=== PATIENT | male | born 1990 | race Caucasian/White ===

== ENCOUNTER 2023-01-27 09:09 | Outpatient (AMB) | payer OTHER, SELFPAY ==
[2023-01-27 09:13] VITALS: BP 134/82; PULSE 63; RESP 12; TEMP 36.5; O2SAT 98; BMI 29.0
--- NOTE | 2023-01-27 09:13 | A.OFFPC_ITS ---
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 Patient states that lately he has been randomly falling asleep and has been experiencing chronic body pain. He states that his fatigue has been in a way disabling and has been worsening. Patient states that in 2016 he went in for a sleep study ajnd nothing came out of it besides that he had allergies that were effecting sleep. Patient states that in his sleep now he has been sleep walking and has been punching and kicking while sleep walking as if acting something out. Patient would like a referral to get sleep study done. Patient would also like to explore a business intelligence director due to him doing so before he transferred care. Twist Tester Required: No Accompanied by: Mother Allergies Seasonal Allergies Allergy (Severe, Verified 01/27/23 09:54) Breathing complication Outdoor Pollen Allergy (Severe, Uncoded 01/27/23 09:54) Breathing Complications Medication List - Last Reconciled 01/27/23 by Ai Molina CNP aripiprazole (Abilify) 2 mg PO BEDTIME multivitamin 1 tab PO DAILY prazosin 2 mg PO BEDTIME sertraline (Zoloft) 100 mg PO DAILY Tobacco use date assessed: 01/27/23 Dental Screening Dental Screen Date: 01/27/23 Did you have a dental visit in the last 12 months?: No Did you have a dental problem in the last 6 months where you did not have access to dental care?: No Was dental information given to patient?: Patient has dentist HPI HPI Comments History of Present Illness Details 32-year-old male presents to [facility]. He notes that he was last evaluated by his former PCP 8 months ago and had blood work done a year ago. He reports PMH significant for anxiety, depression, bipolar 2, PTSD, diplopia, and GERD. He is on Abilify, prazosin, and sertraline. He notes he takes his medications as prescribed. He is followed by a psychiatry instructor every 2 weeks or monthly for medication management. He sees a therapist weekly or every 2 weeks. He reports fatigue and generalized body aches for the past 10 years. No tingling, numbness, loss of sensation. Ibuprofen has been effective in managing his symptoms. He also reports h/o falling asleep abruptly. He reports violent behaviors such as kicking and sleeping during his sleep. He notes he had normal sleep study in 2016. He notes his former PCP was due to refer him to a business intelligence director but he relocated to [facility] before he was referred. He requests referrals to sleep study and rheumatology. [facility] Medical History (Updated 01/27/23 @ 10:25 by Ai Molina CNP) Acid reflux Anxiety Bipolar disorder Depression Generalized headaches Sinusitis Surgical History (Updated 01/27/23 @ 09:29 by Blossom Romano MA) No pertinent past surgical history Family History (Updated 01/27/23 @ 09:31 by Blossom Romano MA) Mother High cholesterol Psychiatric disorder Social History Housing: House Patient Tobacco Use Status: Never used Tobacco e-Cigarette/Vaping Use: Never Used service: No Current occupational status: unemployed and disabled Cognitive needs: Yes Hearing needs: No Vision needs: Yes Questionnaire PHQ-9 Over the last 2 weeks, how often have you been bothered by any of the following problems? 1. Little interest or pleasure in doing things: more than half the days 2. Feeling down, depressed, or hopeless: nearly every day 3. Trouble falling or staying asleep, or sleeping too much: not at all 4. Feeling tired or having little energy: nearly every day 5. Poor appetite or overeating: not at all 6. Feeling bad about yourself - or that you are a failure or have let yourself or your family down: not at all 7. Trouble concentrating on things, such as reading the newspaper or watching television: nearly every day 8. Moving or speaking so slowly that other people could have noticed. Or the opposite - being so fidgety or restless that you have been moving around a lot more than usual: nearly every day 9. Thoughts that you would be better off or of hurting yourself in some way: not at all Total score: 14 Depression Screening Interpretation: Positive Source: Developed by Drs. Terry Freed, Randa Zimmer, Rom Ambriz and colleagues, with an educational riana from [employer]. Thrive Questionnaire Date Thrive assessed: 01/27/23 What is your living situation today?: I have a steady place to live Within the past 12 months, did the food you bought not last and you didn't have the money to get more?: Never true Within the past 12 months, did you worry whether your food would run out before you got money to buy more?: Never true Do you have trouble paying for medicines?: No Do you have trouble getting transportation to medical appointments?: No Do you have trouble paying your heating and electricity bill?: No Do you have trouble taking care of your child, family member or friend?: No Do you have trouble with day-to-day activities such as bathing, preparing meals, shopping, managing finances, etc.?: No Are you currently unemployed and looking for a job?: No Are you interested in more education?: No Please select the resources that you would like help with: None Currently or been in a relationship where the following occur: no concerns reported AUDIT C Alcohol Use Questionnaire (AUDIT-C) 1. How often do you have a drink containing alcohol?: Never 3. How often do you have six or more drinks on one occasion?: Never Total Score: 0 ROCKY-7 AMB Questionnaire ROCKY-7 Date ROCKY - 7 assessed: 01/27/23 Feeling nervous, anxious, or on edge: 3 = Nearly every day Not being able to stop or control worryin = More than half the days Worrying too much about different things: 3 = Nearly every day Trouble relaxin = More than half the days Being so restless that it is hard to sit still: 3 = Nearly every day Becoming easily annoyed or irritable: 3 = Nearly every day Feeling afraid as if something awful might happen: 2 = More than half the days Total ROCKY-7 score (0-4 normal; 5-9 mild; 10-14 moderate; 15-21 severe): 18 Source: Developed by Drs. Terry Freed, Randa Zimmer, Rom Ambriz and colleagues, with an educational riana from [employer]. Review of Systems Const Details: Const Denies chills, Denies fatigue, Denies fever(s), Denies headache(s) and Denies weakness ENT Denies dizziness and Denies headache(s) Card Denies chest pain, Denies lightheadedness, Denies dyspnea and Denies other (Palpitations) Resp Denies cough, Denies dyspnea, Denies wheezing and Denies other ( shortness of breath) GI Denies abdominal pain, Denies melena, Denies hematochezia, Denies change in bowel habits, Denies dyspepsia and Denies nausea Denies hematuria and Denies dysuria Musc Reports as per HPI Skin/Breast Denies rash, Denies unusual bruising and Denies wounds Neuro Denies abnormal gait, Denies dizziness, Denies headache(s), Denies memory loss, Denies numbness, Denies Sensory deficit (Neuro), Denies tingling and Denies weakness Psych Denies anxiety, Denies depression, Denies memory loss Endo Denies cold intolerance, Denies fatigue, Denies heat intolerance, Denies polydipsia and Denies polyuria Aller/Immun Denies wheezing Physical exam (Primary Care) Vital Signs: Last Vital Signs Temp 97.7 F 01/27/23 09:13 Pulse 63 01/27/23 09:13 Resp 12 01/27/23 09:13 BP 134/82 01/27/23 09:13 Pulse Ox 98 01/27/23 09:13 Oxygen Delivery Method Room Air 01/27/23 09:13 BMI result Body Mass Index 29.0 Tobacco/Smoking Status: Tobacco use Status Tobacco use date assessed 01/27/23 01/27/23 09:32 Patient Tobacco Use Status Never used Tobacco 01/27/23 09:32 e-Cigarette/Vaping Use Never Used 01/27/23 09:32 PHQ-9: PHQ-9 Score PHQ-9: Total score 14 01/27/23 09:32 Depression Screening Interpretation: Positive Thrive Assessment: Date of Thrive Assessment Date Thrive assessed 01/27/23 01/27/23 09:32 Currently or been in a relationship where the following occur: no concerns reported Const Other: General: no acute distress and well developed Nutritional Appearance: well nourished Orientation/consciousness: patient oriented x3 HENMT Head: Yes normocephalic and Yes atraumatic Eyes General: appearance normal, both eyes and all related structures Pupils: Equal, round and reactive pupils present EOM: EOMs intact bilaterally Resp Effort & Inspection: normal respiratory effort Auscultation: clear to auscultation bilaterally Cardio Rate: regular rate Rhythm: regular rhythm Heart sounds: S1 normal heart sound present, S2 normal heart sound present, no gallops, no murmurs and no rubs GI Palpation (GI): No Abdominal aortic bruit present, Soft to palpation, nontender, No hepatosplenomegaly present and No Rebound tenderness present Auscultation: normal bowel sounds General: Yes no CVA tenderness Back/Spine/Pelvis Back: no CVA tenderness Cervical Spine: cervical ROM normal and Cervical spine tenderness Thoracic/Lumbar Spine: thoraco-lumbar ROM normal, No pain with thoraco-lumbar ROM, thoracic spinal tenderness and lumbar spinal tenderness Extrem General: Yes normal to inspection, No edema and No calf tenderness Skin General: warm and dry. Normal skin color. Normal skin turgor Lesions: no lesions Rashes: no rashes Trauma: no lacerations or abrasions Wounds: no wounds Nails: normal Neuro General: patient oriented x3, gait normal and no focal neuro deficit Cranial nerves: Yes Equal, round and reactive pupils present Cognition (Neuro): normal cognition Gait exam (Neuro): Normal gait present Sensory Exam: No Sensory deficit (Neuro) Psych Appearance: grossly normal Affect: normal affect Attitude: cooperative Thought process: Normal thought process present Assessment and Plan Assessment & Plan (1) Generalized body aches: Code(s): R52 - Pain, unspecified Plan: Reports chronic generalized body aches No exam evidence of bacterial or viral infection Tenderness to palpation of muscles to his entire body Tylenol ibuprofen as needed for pain or discomfort Warm/cold compresses encouraged Will check a sed rate Referred to rheumatology Return with worsening or new symptoms Verbalized understanding and agreed with treatment plan (2) Excessive sleepiness: Code(s): G47.10 - Hypersomnia, unspecified Plan: Reports chronic history of abrupt and disruptive sleep Referred to sleep medicine Follow-up with worsening or new symptoms Verbalized understanding and agreed with treatment plan. (3) Anxiety: Code(s): F41.9 - Anxiety disorder, unspecified Plan: PHQ-9 and ROCKY-7 scores revealed moderate depression and severe anxiety respectively Continue with current treatment regimen Routine exercise encouraged Follow-up with psychiatry and therapist as planned Return with worsening or new symptoms Verbalized understanding and agreed with treatment plan. (4) Depression: Code(s): F32.A - Depression, unspecified Plan: As above (5) Bipolar II disorder: Code(s): F31.81 - Bipolar II disorder Plan: As above (6) PTSD (post-traumatic stress disorder): Code(s): F43.10 - Post-traumatic stress disorder, unspecified Plan: As above (7) Laboratory tests ordered as part of a complete physical exam (CPE): Code(s): Z00.00 - Encounter for general adult medical examination without abnormal findings Plan: Fasting labs ordered as part of a complete physical exam. Advised to fast for at least 10 hours before getting labs drawn. May drink water Verbalized understanding and agreed with treatment plan. (8) Diplopia: Code(s): H53.2 - Diplopia Plan: No acute symptoms Referred to Ophthalmology Orders: Orders Comprehensive [place]. Panel Fast Today Z00.00 - Encounter for general adult medical examination without abnormal findings Lipid Panel Today Z00.00 - Encounter for general adult medical examination without abnormal findings TSH reflex Free T4 Today Z00.00 - Encounter for general adult medical examination without abnormal findings Complete Blood Count Auto Diff Today Z00.00 - Encounter for general adult medical examination without abnormal findings Erythrocyte Sedimentation Rate Today Z00.00 - Encounter for general adult medical examination without abnormal findings UA CC w/rflx Micro + Cult Today Z00.00 - Encounter for general adult medical examination without abnormal findings Referrals Ophthalmology Referral H53.2 - Diplopia Coding Level of Care Code New Pt Level 3 (60460) Diagnoses Generalized body aches R52 Excessive sleepiness G47.10 Anxiety F41.9 Depression F32.A Bipolar II disorder F31.81 PTSD (post-traumatic stress disorder) F43.10 Laboratory tests ordered as part of a complete physical exam (CPE) Z00.00 Diplopia H53.2
== END 2023-01-27 10:28 | disposition home or self-care (01) ==
PROVIDERS: PCP Internal Medicine; Visit Provider Nurse Practitioner Family
DX: R52 Pain, unspecified (principal); F41.9 Anxiety disorder, unspecified; F31.81 Bipolar II disorder; F43.10 Post-traumatic stress disorder, unspecified; H53.2 Diplopia; G47.10 Hypersomnia, unspecified
CPT/HCPCS: 99203

== ENCOUNTER 2023-01-27 10:14 | Outpatient (REF) | payer OTHER, SELFPAY ==
[2023-01-27 11:45] LABS: MANUAL DIFF FLAG NO
[2023-01-27 11:49] LABS: Basophils Percent Auto 0.5 % (0-2); Eosinophils Absolute Auto 0.1 X10*3/uL (0.0-0.4); Eosinophils Percent Auto 1.4 % (0-4); Hematocrit 49.3 % (42.0-52.0); Hemoglobin 16.7 g/dl (14.0-18.0); Imm Gran Abs Auto 0.04 X10*3/uL (0.00-0.03); Imm Gran Pct Auto 0.5 % (0.0-0.4); Lymphocytes Absolute Auto 3.3 X10*3/uL (1.2-4.9); Lymphocytes Percent Auto 44.3 % (20-40); Mean Corpuscular HGB Conc 33.9 g/dl (31.0-36.0); Mean Corpuscular Hemoglobin 29.1 pg (27.0-33.0); Monocytes Absolute Auto 0.6 X10*3/uL (0.1-1.2); Monocytes Percent Auto 8.5 % (2-11); Neutrophils Absolute Auto 3.3 x10*3/uL (2.0-8.3); Neutrophils Percent Auto 44.8 % (45-73); Platelet Count 236 X10*3/uL (160-400); Red Blood Count 5.73 X10*6/uL (4.60-5.80); Red Cell Distribution Width 11.8 % (11.0-16.0); White Blood Count 7.3 X10*3/uL (4.8-10.8)
[2023-01-27 12:24] LABS: Alanine Aminotransferase 32 U/L (0-40); Albumin Level 4.5 g/dL (3.5-5.0); Alkaline Phosphatase 80 U/L (39-117); Anion Gap 18 (12-20); Aspartate Amino Transferase 26 U/L (5-37); Bilirubin Total 0.4 mg/dL (0.0-1.0); Blood Urea Nitrogen 24 mg/dL (9-16); Calcium 10.4 mg/dL (8.4-10.2); Carbon Dioxide 23 mmol/L (22-29); Chloride 103 mmol/L (96-108); Cholesterol 215 mg/dL (<200); Estimated Glomerular Filt Rate > 60; Glucose Fasting 83 mg/dL (60-99); HDL Cholesterol 37 mg/dL (>40); LDL Cholesterol Calculated 153 mg/dL (<100); Potassium 3.8 mmol/L (3.3-5.1); Sodium 140 mmol/L (135-145); Total Protein 7.6 g/dL (6.5-8.0); Triglycerides 126 mg/dL (<150)
[2023-01-27 12:30] LABS: Erythrocyte Sedimentation Rate 5 MM/HR (0-15)
[2023-01-27 12:45] LABS: TSH reflex Free T4 1.74 uIU/mL (0.32-4.0)
[2023-01-27 14:19] LABS: Appearance Urine Turbid; Color Urine Yellow; Glucose Urine UA Negative (Negative); Leukocyte Esterase Urine Negative (Negative); Nitrite Urine Negative (Negative); PH 5.5 (5.0-9.0); Specific Gravity - Urine >= 1.030 (1.005-1.025); Urine Blood Negative (Negative); Urine Ketones Negative (Negative); Urine Protein Negative (Neg-Trace)
== END 2023-01-27 10:15 | disposition home or self-care (01) ==
LOC: HO.WFDLDS 10:14
PROVIDERS: Visit Provider Nurse Practitioner Family
DX: Z00.00 Encounter for general adult medical examination without abnormal findings (principal)
CPT/HCPCS: 36415; 80053; 80061; 81003; 84443; 85025; 85652

== ENCOUNTER 2023-04-14 14:49 | Outpatient (AMB) | payer OTHER, SELFPAY ==
--- NOTE | 2023-04-14 15:03 | A.OFFVIS_ITS ---
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 Pt reports non refreshing sleep with excessive daytime tiredness. He feels weak, fatigue and sleepy. He does not have difficulty falling asleep or styaing sleep. He sleeps 9-10 hrs but feels exhausted. He wakes up with jaw clenching and holding his breath. He is also referred to rheumatology for evaluation of body ache and fatigue. Had in lab sleep study done [id number], but he could not sleep enough and it was inconclusive. Pt reports vivid dream and REM behavior, having violent movement, but not happen every night, maybe twice a month. Pt has hx of bipolar and depression. Denies smoking or alcohol use. Sleep questionnaire: Have you ever been diagnosed with a sleep disorder? No. Have you ever had a sleep study in the past? Yes. PSG done but it was inconclusive. Have you ever been treated for a sleep disorder? No. Do you take medications for a sleep disorder? prazosin 2mg, abilify 7.5 mg qHS. Do you snore? No, but having difficulty breathing and uses nasal strip. having nasal congestion. Do you wake up gasping at night? No. Do you have episodes of apneas? Yes. If yes, are they witnessed? Yes. Do you have episodes of nocturnal chest pain or dyspnea? Yes. Do you have difficulty initiating sleep? No. Do you have difficulty maintaining sleep? No. Do you wake up tired? Yes. Do you have headaches upon awakening? Yes. Do you wake up with dry mouth or throat? Yes. Do you have GERD? Yes. Do you have nocturia? Yes, 1-2 times at night. Do you have nocturnal leg cramps? No. Do you have symptoms of restless legs? No. Do you act out your dreams? Yes, kicking. [facility] Medical History (Updated 04/14/23 @ 15:24 by Wesley Mcclendon CNP) Bipolar disorder Depression Anxiety Generalized headaches Acid reflux Sinusitis Surgical History No pertinent past surgical history Family History Mother High cholesterol Psychiatric disorder Social History Housing: House Patient Tobacco Use Status: Never used Tobacco e-Cigarette/Vaping Use: Never Used service: No Current occupational status: unemployed and disabled Cognitive needs: Yes Hearing needs: No Vision needs: Yes Review of Systems Const All systems reviewed & are unremarkable except as noted in HPI and below Physical Exam Vital Signs: Last Vital Signs Pulse 67 04/14/23 15:06 BP 130/89 04/14/23 15:06 Pulse Ox 97 04/14/23 15:06 Oxygen Delivery Method Room Air 04/14/23 15:06 BMI result Body Mass Index 29.2 Const General: cooperative Nutritional Appearance: overweight Orientation/consciousness: patient oriented x3 Neck Neck: Yes full ROM and Yes supple Resp Effort & Inspection: normal respiratory effort and able to speak in complete sentences Neuro General: patient oriented x3, gait normal and moves all extremities Cognition (Neuro): normal cognition Gait exam (Neuro): Normal gait present Motor exam (neuro): 5/5 motor strength present throughout, Pronator motor function not present and no tremor noted Psych Appearance: grossly normal Mental Status: mental status grossly normal Speech and movement: Normal speech and movement present Affect: normal affect Attitude: cooperative Assessment & Plan Assessment & Plan (1) Witnessed episode of apnea: Code(s): R06.81 - Apnea, not elsewhere classified (2) Excessive sleepiness: Code(s): G47.10 - Hypersomnia, unspecified Plan Pt is advised to undergo home sleep study to assess for sleep apnea. Will f/u with pt after study to discuss results and appropriate treatment options. Sleep hygiene education provided. Advised patient to try magnesium supplement and melatonin. Pt to call with any worsening concerns or questions. Orders: Orders RT home sleep study Today G47.10 - Hypersomnia, unspecified, R06.81 - Apnea, not elsewhere classified Coding Level of Care Code New Pt Level 3 (34414) Diagnoses Witnessed episode of apnea R06.81 Excessive sleepiness G47.10
[2023-04-14 15:06] VITALS: BP 130/89; PULSE 67; O2SAT 97; BMI 29.2
== END 2023-04-14 15:29 | disposition home or self-care (01) ==
PROVIDERS: PCP Nurse Practitioner Family; Visit Provider Nurse Practitioner Family
DX: R06.81 Apnea, not elsewhere classified (principal); G47.10 Hypersomnia, unspecified
CPT/HCPCS: 99203

== ENCOUNTER → 2023-04-14 14:49 | Outpatient (BNVA) | payer OTHER, SELFPAY | PROVIDERS: PCP Nurse Practitioner Family; Visit Provider Nurse Practitioner Family | DX: G47.10 Hypersomnia, unspecified (principal); R06.81 Apnea, not elsewhere classified | CPT/HCPCS: 99202 ==

== ENCOUNTER 2023-05-05 15:11 | Outpatient (AMB) | payer OTHER, SELFPAY ==
--- NOTE | 2023-05-05 15:12 | A.OFFVIS_ITS ---
Intake Vital Signs 05/05/23 15:13 Height 5 ft 1 in Weight 169 lb 1.513 oz BMI 31.9 BP 126/82 Blood Pressure Location Rt brachial Position Sitting Respiration 15 Pulse 78 Pulse Source Pulse Oximeter Temp 97.5 F Temp Source Tympanic Pulse Oximetry (%) 99 Oxygen Delivery Method Room Air Intake Visit Reasons: Joint Pain Allergies Seasonal Allergies Allergy (Severe, Verified 05/05/23 15:15) Breathing complication Outdoor Pollen Allergy (Severe, Uncoded 05/05/23 15:15) Breathing Complications Medication List - Last Reconciled 05/05/23 by Krissy Perera RN aripiprazole (Abilify) 7.5 mg PO BEDTIME multivitamin 1 tab PO DAILY prazosin 2 mg PO BEDTIME sertraline (Zoloft) 100 mg PO DAILY HPI HPI Comments History of Present Illness Details Oren, a 33-year-old male presents for initial evaluation of chronic fatigue, general joint pain and pelvic floor weakness. He reports fatigue and generalized body aches for the past 10 years. No tingling, numbness, loss of sensation. He also explained that the joint pain is focused between his shoulder blades, neck and back, and at times his knees and hips would just to hurt. He reports 1 to 3 hours of morning stiffness. Ibuprofen has been effective in managing his symptoms. He also reports h/o falling asleep abruptly. He reports violent behaviors such as kicking and sleeping during his sleep. He notes he had normal sleep study in 2016. Patient shares that has been disabled for unemployment now 4 years because it worsened and he is not able to function cognitively because of the fatigue. He has had several workups by his PCP, neurology, sleep study and urology without remarkable findings. He explains that he is at his wits end cannot understand why he is so tired. He feels weak, fatigue and sleepy. He does not have difficulty falling asleep or styaing sleep. He sleeps 9-10 hrs but feels exhausted. He reports PMH significant for anxiety, depression, bipolar 2, PTSD, diplopia, and GERD. He is on Abilify, prazosin, and sertraline. He notes he takes his medications as prescribed. He is followed by a psychological anthropologist every 2 weeks or monthly for medication management. He sees a therapist weekly or every 2 weeks. Oren has a hx of bipolar and depression, denies smoking or alcohol use. He refers reports that he has changed his diet completely and tries to eat very clean and healthy in the hopes that this would have helped but it has not helped him over the years. He does like to go to the gym and workout and sometimes he feels his muscles With regards to an inflammatory or connective tissue disease process, the p atient denies Raynaud's phenomenon. 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 He denies dry, itchy eyes, red burning eyes needing steroids to treat; dry mouth, mouth sores or ulcers; nose bleed; ringing in the ear and thinning hair or hair loss. He denies butterfly rash on face or other rashes. He does not experience photosensitivity - getting sick or developing a rash from being out in the sun; denies blood or froth in urine. He reports urine dribble. Patient denies HAZEL or SOB(not related to anxiety) and chest pain. He has not had Carditis or Pleuritis. Patient denies any history of DVT/PE. never have had to take aspirin or a blood thinner. He denies fevers, unexplained weight-loss or weight- gain. Denies abdominal pain, blood or mucous in stool; nausea, vomiting and diarrhea and difficulty swallowing. He has been diagnosed with GERD but with his diet changes, it has been controlled. He denies family history of known connective tissue diseases or autoimmune processes. Grandfather with history of bladder prostate and colon cancer [facility] Medical History (Updated 05/05/23 @ 16:12 by Adrienne Strange [facility]) Shoulder blade pain Generalized muscle weakness Chronic fatigue Bipolar disorder Depression Anxiety Generalized headaches Acid reflux Sinusitis Surgical History No pertinent past surgical history Family History (Updated 05/05/23 @ 15:17 by Krissy Perera RN) Mother High cholesterol Psychiatric disorder Fibromyalgia Osteoarthritis Social History Housing: House Patient Tobacco Use Status: Never used Tobacco e-Cigarette/Vaping Use: Never Used service: No Current occupational status: unemployed and disabled Cognitive needs: Yes Hearing needs: No Vision needs: Yes Review of Systems Const All systems reviewed & are unremarkable except as noted in HPI and below Physical Exam Vital Signs: Last Vital Signs Temp 97.5 F 05/05/23 15:13 Pulse 78 05/05/23 15:13 Resp 15 05/05/23 15:13 BP 126/82 05/05/23 15:13 Pulse Ox 99 05/05/23 15:13 Oxygen Delivery Method Room Air 05/05/23 15:13 BMI result Body Mass Index 31.9 APPEARANCE: Patient in no acute distress, groomed and appears nourished EYES no redness, pupils equal and reactive to light, eyelids normal EARS:? External ear normal, canal clear and tympanic membrane normal. NOSE/SINUS:? Airflow through both nares, no nasal discharge, no bleeding THROAT:? Oral mucosa moist, no ulcerations NECK:? No thyromegaly or masses, no adenopathy, trachea midline. HEART:? Regular rhythm, S1-S2 heard, no murmurs, rubs or gallops. LUNG:? Clear to percussion and auscultation ABD:? Normal bowel sounds, no organomegaly, masses or tenderness. EXTREMITIES:? No edema, no calf tenderness, normal peripheral pulses. NEURO:? Oriented and alert x3.? No focal weakness.? Reflexes symmetric.? Gait normal. SKIN:? There are no skin lesions evident. No objective signs of Raynaud's phenomenon. JOINT EXAM: Cervical Spine:.? Full range of motion without pain; no tenderness. reports stiffness with ROM Thoracic Spine:.? No scoliosis.? Tenderness on palpation in areas of scapula spine Lumbar Spine:.? Alignment normal.? Full range of motion without pain, no tenderness. Chest Wall:.? No tenderness, swelling, increased warmth or erythema. Hands:.? Normal pain-free range of motion without tenderness, swelling, increased warmth or erythema. 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 Wrists:.? Normal pain-free range of motion without tenderness, swelling, increased warmth or erythema. Elbows:. Normal pain-free range of motion without tenderness, swelling, increa sed warmth or erythema. Shoulders:.?? Full range of motion without pain. No tenderness, weakness, swelling, increased warmth or erythema. reports stiffness with ROM Hips:.? Full range of motion without pain. Hip bursa:.? No tenderness. Knees:.?? Normal pain-free range of motion without tenderness, swelling, increased warmth or erythema.? There is no effusion or crepitation Ankles:.? Normal pain-free range of motion without tenderness, swelling, increased warmth or erythema. Feet:.? Normal pain-free range of motion without tenderness, swelling, increased warmth or erythema. Results Reviewed Results Reviewed: 01/27/2023 labs CBC grossly normal CMP grossly normal-calcium 10.4 h Assessment & Plan Assessment & Plan (1) Chronic fatigue: Code(s): R53.82 - Chronic fatigue, unspecified (2) Generalized body aches: Code(s): R52 - Pain, unspecified (3) Pelvic floor weakness, male: Code(s): M62.89 - Other specified disorders of muscle (4) Shoulder blade pain: Code(s): M89.8X1 - Other specified disorders of bone, shoulder Plan Chronic Fatigue/Joint pain: Oren, 33-year-old male here for evaluation of chronic fatigue, back and hip pain, neck pain, shoulder pain and pelvic floor weakness. Life is currently unsettling for this is a young man who states that he has been disabled for 4 years now. He had pursued his undergraduate degree in criminal justice and was ready to work when his experience started. He finds the chronic fatigue very debilitating and body aches and pain discouraging. He cannot relate an associated event at onset. However, after an initial careful review of patient's records, physical examination, and analysis of existing diagnostics, I do not think his experienced is being caused by an underlying connective tissue disease or an inflammatory process. I explained to the patient that chronic fatigue, as a symptom of illness, can multiple causes. I think his psych history could be the main cause for fatigue, which is also a side effect of his medications. The tenderness/pain between his shoulder blades is likely a stress point. He denies injury or trauma to his joints. He denies having joint Xrays done. I will evaluate further with EMG studies, Labs and Xrays. Orders: Orders C Reactive Protein 05/05/23 R52 - Pain, unspecified, R53.82 - Chronic fatigue, unspecified Erythrocyte Sedimentation Rate 05/05/23 R52 - Pain, unspecified, R53.82 - Chronic fatigue, unspecified ARCHIE Reflex Titer and Pattern 05/05/23 R52 - Pain, unspecified, R53.82 - Chronic fatigue, unspecified Uric Acid 05/05/23 R52 - Pain, unspecified, R53.82 - Chronic fatigue, unspecified Sjogren's Antibodies 05/05/23 R52 - Pain, unspecified, R53.82 - Chronic fatigue, unspecified IRON PROFILE 05/05/23 R52 - Pain, unspecified, R53.82 - Chronic fatigue, unspecified Vitamin B12 05/05/23 R52 - Pain, unspecified, R53.82 - Chronic fatigue, unspecified Complete Blood Count Auto Diff 05/05/23 R52 - Pain, unspecified, R53.82 - Chronic fatigue, unspecified NE electromyogram (EMG) 05/05/23 M62.81 - Muscle weakness (generalized), M62.89 - Other specified disorders of muscle, R53.82 - Chronic fatigue, unspecified HLA B27 05/05/23 R07.81 - Pleurodynia, R52 - Pain, unspecified XR hip BI w PEL1V 05/05/23 M62.81 - Muscle weakness (generalized), M89.8X1 - Other specified disorders of bone, shoulder XR thoracic spine 3V 05/05/23 M62.81 - Muscle weakness (generalized), M89.8X1 - Other specified disorders of bone, shoulder, R07.81 - Pleurodynia Aldolase 05/05/23 R52 - Pain, unspecified, R53.82 - Chronic fatigue, unspecified Creatine Kinase Total 05/05/23 R52 - Pain, unspecified, R53.82 - Chronic fatigue, unspecified Immunoglobulins,IgG IgA IgM 05/05/23 R52 - Pain, unspecified, R53.82 - Chronic fatigue, unspecified Vitamin D 1,25 dihydroxy 05/05/23 R52 - Pain, unspecified, R53.82 - Chronic fatigue, unspecified Free T4 (Free Thyroxine) 05/05/23 R52 - Pain, unspecified, R53.82 - Chronic fatigue, unspecified Comprehensive Met. Panel 05/05/23 R52 - Pain, unspecified, R53.82 - Chronic fatigue, unspecified XR shoulder RT min 2V 05/05/23 M62.81 - Muscle weakness (generalized), M89.8X1 - Other specified disorders of bone, shoulder XR shoulder LT min 2V 05/05/23 M62.81 - Muscle weakness (generalized), M89.8X1 - Other specified disorders of bone, shoulder Coding Level of Care Code Tele New Pt Level 4 (59290) Diagnoses Chronic fatigue R53.82 Generalized body aches R52 Pelvic floor weakness, male M62.89 Shoulder blade pain M89.8X1
[2023-05-05 15:13] VITALS: BP 126/82; PULSE 78; RESP 15; TEMP 36.4; O2SAT 99; BMI 31.9
== END 2023-05-05 16:18 | disposition home or self-care (01) ==
PROVIDERS: PCP Nurse Practitioner Family; Visit Provider Nurse Practitioner Family
DX: R53.82 Chronic fatigue, unspecified (principal); R52 Pain, unspecified; M62.89 Other specified disorders of muscle; M89.8X1 Other specified disorders of bone, shoulder
CPT/HCPCS: 99204

== ENCOUNTER 2023-05-05 15:11 | Outpatient (REF) | payer OTHER, SELFPAY ==
--- NOTE | ~2023-05-05 | XR_ITS ---
EXAMINATION: XR THORACIC SPINE XR SHOULDER, RIGHT XR SHOULDER, LEFT XR PELVIS AND BILATERAL HIPS CLINICAL INFORMATION: Muscle weakness generalized. Please visualize shoulder blades. COMPARISON: None TECHNIQUE: 4 views of each shoulder. AP view of the pelvis. AP and frog-lateral views of each hip. 3 views of the thoracic spine. FINDINGS: AP PELVIS AND BILATERAL HIPS: Mild degenerative changes in the bilateral hips. Bilateral hip alignment is preserved. A rounded density projects over the sacrum on some views and over soft tissues on others suggesting it is a soft tissue focus of uncertain etiology and significance. Bilateral sacroiliac joints are symmetric. THORACIC SPINE: Degenerative changes on very limited views of the lower cervical spine should be evaluated with dedicated cervical spine images. Mild degenerative changes in the lower thoracic spine. No gross thoracic vertebral body compression fractures are appreciated, although evaluation limited due to overlying bone and soft tissues. RIGHT SHOULDER: Mild degenerative changes in the acromioclavicular joint with joint space narrowing and hypertrophic change. Glenohumeral alignment is preserved. LEFT SHOULDER: Mild degenerative changes in the acromioclavicular joint with joint space narrowing and hypertrophic change. Glenohumeral alignment is preserved. Small dense focus projects over the scapula, possibly representing a bony lesion such as a bone island versus soft tissue calcification and is incompletely imaged. XR/XR shoulder RT min 2V IMPRESSION: 1. Mild degenerative changes in the bilateral hips. 2. A rounded density in the soft tissues adjacent to the sacrum of undetermined age, significance and etiology. 3. Mild degenerative changes in the lower thoracic spine. 4. Mild degenerative changes in the bilateral acromioclavicular joints. Correlation with clinical exam recommended to determine further management. If there is concern for fracture or other underlying pathology, MRI could be obtained for further evaluation.
--- NOTE | ~2023-05-05 | XR_ITS ---
EXAMINATION: XR THORACIC SPINE XR SHOULDER, RIGHT XR SHOULDER, LEFT XR PELVIS AND BILATERAL HIPS CLINICAL INFORMATION: Muscle weakness generalized. Please visualize shoulder blades. COMPARISON: None TECHNIQUE: 4 views of each shoulder. AP view of the pelvis. AP and frog-lateral views of each hip. 3 views of the thoracic spine. FINDINGS: AP PELVIS AND BILATERAL HIPS: Mild degenerative changes in the bilateral hips. Bilateral hip alignment is preserved. A rounded density projects over the sacrum on some views and over soft tissues on others suggesting it is a soft tissue focus of uncertain etiology and significance. Bilateral sacroiliac joints are symmetric. THORACIC SPINE: Degenerative changes on very limited views of the lower cervical spine should be evaluated with dedicated cervical spine images. Mild degenerative changes in the lower thoracic spine. No gross thoracic vertebral body compression fractures are appreciated, although evaluation limited due to overlying bone and soft tissues. RIGHT SHOULDER: Mild degenerative changes in the acromioclavicular joint with joint space narrowing and hypertrophic change. Glenohumeral alignment is preserved. LEFT SHOULDER: Mild degenerative changes in the acromioclavicular joint with joint space narrowing and hypertrophic change. Glenohumeral alignment is preserved. Small dense focus projects over the scapula, possibly representing a bony lesion such as a bone island versus soft tissue calcification and is incompletely imaged. XR/XR thoracic spine 3V IMPRESSION: 1. Mild degenerative changes in the bilateral hips. 2. A rounded density in the soft tissues adjacent to the sacrum of undetermined age, significance and etiology. 3. Mild degenerative changes in the lower thoracic spine. 4. Mild degenerative changes in the bilateral acromioclavicular joints. Correlation with clinical exam recommended to determine further management. If there is concern for fracture or other underlying pathology, MRI could be obtained for further evaluation.
--- NOTE | ~2023-05-05 | XR_ITS ---
EXAMINATION: XR THORACIC SPINE XR SHOULDER, RIGHT XR SHOULDER, LEFT XR PELVIS AND BILATERAL HIPS CLINICAL INFORMATION: Muscle weakness generalized. Please visualize shoulder blades. COMPARISON: None TECHNIQUE: 4 views of each shoulder. AP view of the pelvis. AP and frog-lateral views of each hip. 3 views of the thoracic spine. FINDINGS: AP PELVIS AND BILATERAL HIPS: Mild degenerative changes in the bilateral hips. Bilateral hip alignment is preserved. A rounded density projects over the sacrum on some views and over soft tissues on others suggesting it is a soft tissue focus of uncertain etiology and significance. Bilateral sacroiliac joints are symmetric. THORACIC SPINE: Degenerative changes on very limited views of the lower cervical spine should be evaluated with dedicated cervical spine images. Mild degenerative changes in the lower thoracic spine. No gross thoracic vertebral body compression fractures are appreciated, although evaluation limited due to overlying bone and soft tissues. RIGHT SHOULDER: Mild degenerative changes in the acromioclavicular joint with joint space narrowing and hypertrophic change. Glenohumeral alignment is preserved. LEFT SHOULDER: Mild degenerative changes in the acromioclavicular joint with joint space narrowing and hypertrophic change. Glenohumeral alignment is preserved. Small dense focus projects over the scapula, possibly representing a bony lesion such as a bone island versus soft tissue calcification and is incompletely imaged. XR/XR hip BI w PEL1V IMPRESSION: 1. Mild degenerative changes in the bilateral hips. 2. A rounded density in the soft tissues adjacent to the sacrum of undetermined age, significance and etiology. 3. Mild degenerative changes in the lower thoracic spine. 4. Mild degenerative changes in the bilateral acromioclavicular joints. Correlation with clinical exam recommended to determine further management. If there is concern for fracture or other underlying pathology, MRI could be obtained for further evaluation.
[2023-05-05 16:41] LABS: MANUAL DIFF FLAG NO
[2023-05-05 17:39] LABS: Basophils Percent Auto 0.5 % (0-2); Eosinophils Absolute Auto 0.1 X10*3/uL (0.0-0.4); Eosinophils Percent Auto 0.8 % (0-4); Hematocrit 49.3 % (42.0-52.0); Hemoglobin 16.6 g/dl (14.0-18.0); Imm Gran Abs Auto 0.02 X10*3/uL (0.00-0.03); Imm Gran Pct Auto 0.3 % (0.0-0.4); Lymphocytes Absolute Auto 2.4 X10*3/uL (1.2-4.9); Lymphocytes Percent Auto 39.8 % (20-40); Mean Corpuscular HGB Conc 33.7 g/dl (31.0-36.0); Mean Corpuscular Hemoglobin 29.5 pg (27.0-33.0); Mean Corpuscular Volume 87.7 fL (80.0-98.0); Mean Platelet Volume 10.6 fL (9.4-12.4); Monocytes Absolute Auto 0.5 X10*3/uL (0.1-1.2); Monocytes Percent Auto 7.6 % (2-11); Neutrophils Absolute Auto 3.1 x10*3/uL (2.0-8.3); Platelet Count 224 X10*3/uL (160-400); Red Blood Count 5.62 X10*6/uL (4.60-5.80); Red Cell Distribution Width 11.5 % (11.0-16.0); White Blood Count 6.1 X10*3/uL (4.8-10.8)
[2023-05-05 18:27] LABS: Alanine Aminotransferase 21 U/L (0-40); Albumin Level 4.7 g/dL (3.5-5.0); Alkaline Phosphatase 73 U/L (39-117); Anion Gap 12 (12-20); Aspartate Amino Transferase 20 U/L (5-37); Bilirubin Total 0.7 mg/dL (0.0-1.0); Blood Urea Nitrogen 15 mg/dL (9-16); C Reactive Protein 0.11 mg/dL (< or = 0.50); Calcium 9.9 mg/dL (8.4-10.2); Carbon Dioxide 27 mmol/L (22-29); Chloride 106 mmol/L (96-108); Estimated Glomerular Filt Rate > 60; Glucose Random 79 mg/dL (60-115); Iron 143 mcg/dL (45-160); Percent Iron Saturation 44 % (15-50); Potassium 3.8 mmol/L (3.3-5.1); Sodium 141 mmol/L (135-145); Total Iron Binding Capacity 326 mcg/dL (228-428); Total Protein 7.8 g/dL (6.5-8.0); Unsaturated Iron Binding 183 ug/dL; Uric Acid 6.6 mg/dL (3.4-7.0)
[2023-05-05 18:38] LABS: Erythrocyte Sedimentation Rate 2 MM/HR (0-15)
[2023-05-05 18:43] LABS: Free T4 (Free Thyroxine) 1.04 ng/dL (0.71-1.85)
[2023-05-05 18:48] LABS: Vitamin B12 304 pg/mL (200-900)
[2023-05-08 17:23] LABS: Antibody to SS-A Antigen <1.0 NEG AI (<1.0 NEG); Antibody to SS-B Antigen <1.0 NEG AI (<1.0 NEG)
[2023-05-08 22:04] LABS: IgA 211 mg/dL (47-310); IgG 1201 mg/dL (600-1640); IgM 79 mg/dL (50-300)
[2023-05-09 18:35] LABS: HLA B27 Negative (Negative)
[2023-05-10 14:38] LABS: Anti Nuclear Antibody Screen NEGATIVE (NEGATIVE)
[2023-05-10 16:39] LABS: VITAMIN D (1,25 OH) D3 58 pg/mL; Vit D (1,25-Dihydroxy) Total 58 pg/mL (18-72); Vitamin D (1,25 OH) D2 <8 pg/mL
[2023-05-11 15:53] LABS: Aldolase 5.1 U/L (<=8.1)
== END 2023-05-05 15:12 | disposition home or self-care (01) ==
LOC: HO.XRAY 15:11
PROVIDERS: PCP Nurse Practitioner Family; Visit Provider Nurse Practitioner Family
DX: R53.82 Chronic fatigue, unspecified (principal); R07.81 Pleurodynia; M62.81 Muscle weakness (generalized); M62.89 Other specified disorders of muscle; M89.8X1 Other specified disorders of bone, shoulder; M25.552 Pain in left hip; M25.551 Pain in right hip
CPT/HCPCS: 36415; 72072; 73030; 73521; 80053; 82085; 82550; 82607; 82652; 82784; 83540; 84439; 84550; 85025; 85652; 86038; 86140; 86235; 86812

== ENCOUNTER → 2023-07-04 14:54 | Outpatient (REF) | payer OTHER, SELFPAY | LOC: HO.SL 14:54 | PROVIDERS: PCP Nurse Practitioner Family; Visit Provider Nurse Practitioner Family | DX: G47.10 Hypersomnia, unspecified (principal); R06.81 Apnea, not elsewhere classified; R06.83 Snoring; R40.0 Somnolence | CPT/HCPCS: 95806 ==

== ENCOUNTER → 2023-07-04 15:00 | Outpatient (BNV) | payer OTHER, SELFPAY | PROVIDERS: PCP Nurse Practitioner Family; Visit Provider Internal Medicine | DX: R06.83 Snoring (principal) | CPT/HCPCS: 95806 ==

== ENCOUNTER 2023-09-21 15:01 | Outpatient (REF) | payer OTHER, SELFPAY ==
--- NOTE | 2023-09-21 15:04 | EMG_ITS ---
Chief complaint: Chronic fatigue, body pains, denies weakness, chronic neck and back pain Reason for referral: Evaluate for neuropathy Referred by: Adrienne Strange [employer] Procedure done: Bilateral upper extremities bilateral lower extremity NCS/EMG] Precautions and/or limitations: None The limb temperature was monitored continuously and remained between 32-36 degrees C during the performance of the NCS. Nerve Conduction Studies Anti Sensory Summary Table ?Stim Site NR Onset (ms) Norm Onset (ms) Peak (ms) Norm Peak (ms) O-P Amp (?V) Norm O-P Amp Site1 Site2 Delta-0 (ms) Dist (cm) Michel (m/s) Norm Michel (m/s) Left Median Anti Sensory (2nd Digit) Wrist ? 2.3 3.1 <3.6 73.3 >10 Wrist 2nd Digit 2.3 14.0 61 Right Median Anti Sensory (2nd Digit) Wrist ? 2.3 3.2 <3.6 81.4 >10 Wrist 2nd Digit 2.3 14.0 61 Left Sural Anti Sensory (Lat Mall) Calf ? 2.3 2.8 <4.0 24.5 >5.0 Calf Lat Mall 2.3 14.0 61 Right Sural Anti Sensory (Lat Mall) Calf ? 2.6 3.0 <4.0 12.3 >5.0 Calf Lat Mall 2.6 14.0 54 Left Ulnar Anti Sensory (5th Digit) Wrist ? 2.4 3.3 <3.7 60.7 >15.0 Wrist 5th Digit 2.4 14.0 58 Right Ulnar Anti Sensory (5th Digit) Wrist ? 2.3 3.1 <3.7 52.3 >15.0 Wrist 5th Digit 2.3 14.0 61 Motor Summary Table ?Stim Site NR Onset (ms) Norm Onset (ms) O-P Amp (mV) Norm O-P Amp iAmp (mV) Amp (1st) (%) Site1 Site2 Delta-0 (ms) Dist (cm) Michel (m/s) Norm Michel (m/s) Left Median Motor (Abd Poll Brev) Wrist ? 3.3 <3.9 16.1 >4.5 19.6 100.0 Elbow Wrist 3.6 19.0 53 >45 Elbow ? 6.9 15.0 18.7 93.2 Right Median Motor (Abd Poll Brev) Wrist ? 3.4 <3.9 11.8 >4.5 14.4 100.0 Elbow Wrist 3.5 19.0 54 >45 Elbow ? 6.9 9.9 12.0 83.9 Left Peroneal Motor (Ext Dig Brev) Ankle ? 5.5 <4.0 5.1 >2.5 7.0 100.0 Ankle Ext Dig Brev 5.5 0.0 B Fib ? 11.1 5.3 6.9 103.9 B Fib Ankle 5.6 30.0 54 >40 Poplt ? 12.2 5.1 6.7 100.0 Poplt B Fib 1.1 5.0 45 >40 Right Peroneal Motor (Ext Dig Brev) Ankle ? 7.0 <4.0 5.8 >2.5 7.8 100.0 Ankle Ext Dig Brev 7.0 0.0 B Fib ? 12.3 5.8 7.5 100.0 B Fib Ankle 5.3 28.0 53 >40 Poplt ? 13.7 5.7 7.4 98.3 Poplt B Fib 1.4 6.0 43 >40 Right Peroneal TA Motor (Tib Ant) Fib Head ? 3.2 <4.2 6.5 8.5 100.0 Fib Head Tib Ant 3.2 0.0 Poplit ? 3.9 <5.7 6.6 8.8 101.5 Poplit Fib Head 0.7 6.0 86 >40.5 Left Tibial Motor (Abd German Brev) Ankle ? 3.3 <5 9.6 >2.5 14.1 100.0 Ankle Abd German Brev 3.3 0.0 Knee ? 9.8 9.1 13.0 94.8 Knee Ankle 6.5 36.0 55 >40 Right Tibial Motor (Abd German Brev) Ankle ? 3.4 <5 9.2 >2.5 12.8 100.0 Ankle Abd German Brev 3.4 0.0 Knee ? 10.1 9.7 14.3 105.4 Knee Ankle 6.7 35.0 52 >40 Left Ulnar Motor (Abd Dig Minimi) Wrist ? 2.6 <3.0 7.4 >5 8.8 100.0 B Elbow Wrist 3.8 17.0 45 >45 B Elbow ? 6.4 7.0 8.1 94.6 A Elbow B Elbow 1.3 10.0 77 >45 A Elbow ? 7.7 7.8 9.0 105.4 Right Ulnar Motor (Abd Dig Minimi) Wrist ? 2.9 <3.0 7.5 >5 9.4 100.0 B Elbow Wrist 3.2 18.5 58 >45 B Elbow ? 6.1 7.5 9.4 100.0 A Elbow B Elbow 1.2 10.0 83 >45 A Elbow ? 7.3 7.5 9.4 100.0 EMG ?Side Muscle Nerve Root Ins Act Fibs Psw Amp Dur Poly Recrt Int Pat Comment Right 1stDorInt Ulnar C8-T1 Nml Nml Nml Nml Nml 0 Nml Complete Right FlexCarRad Median C6-7 Nml Nml Nml Nml Nml 0 Nml Complete Right Biceps Musculocut C5-6 Nml Nml Nml Nml Nml 0 Nml Complete Right Triceps Radial C6-7-8 Nml Nml Nml Nml Nml 0 Nml Complete Right Deltoid Axillary C5-6 Nml Nml Nml Nml Nml 0 Nml Complete Right AbdHallucis MedPlantar S1-2 Nml Nml Nml Nml Nml 0 Nml Complete Right AntTibialis Dp Br Peron L4-5 Nml Nml Nml Nml Nml 0 Nml Complete Right MedGastroc Tibial S1-2 Nml Nml Nml Nml Nml 0 Nml Complete Right VastusMed Femoral L2-4 Nml Nml Nml Nml Nml 0 Nml Complete Right ExtHallLong Dp Br Peron L5, S1 Nml Nml Nml Nml Nml 0 Nml Complete Right Peroneus Long Sup Br Peron L5-S1 Nml Nml Nml Nml Nml 0 Nml Complete Left AbdHallucis MedPlantar S1-2 Nml Nml Nml Nml Nml 0 Nml Complete Left AntTibialis Dp Br Peron L4-5 Nml Nml Nml Nml Nml 0 Nml Complete Left PostTibialis Tibial L5, S1 Nml Nml Nml Nml Nml 0 Nml Complete Left MedGastroc Tibial S1-2 Nml Nml Nml Nml Nml 0 Nml Complete Left VastusMed Femoral L2-4 Nml Nml Nml Nml Nml 0 Nml Complete Paraspinal EMG ?Side Muscle Nerve Root Ins Act Fibs Psw Comment Right Lumbar Upper Rami Nml Nml Nml Right Lumbar Mid Rami Nml Nml Nml Right Lumbar Lower Rami Nml Nml Nml Left Lumbar Upper Rami Nml Nml Nml Left Lumbar Mid Rami Nml Nml Nml Left Lumbar Lower Rami Nml Nml Nml FINDINGS: Bilateral peroneal nerves showed prolonged distal latency, normal amplitude and slowing of conduction velocity across the fibular neck. All other nerves tested were within normal. Concentric needle EMG was performed in selected muscles of the right upper extremity, bilateral lower extremity, lumbar paraspinals. Study did not reveal signs of electric abnormalities as shown in the table below. IMPRESSION: 1. This is an abnormal study. 2. 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 3. There is no electrodiagnostic evidence for tibial neuropathy. lumbosacral plexopathy, lumbar radiculopathy, or peripheral neuropathy. CLINICAL COMMENT: Incidental findings above of peroneal neuropathy would not explain chronic generalized fatigue. Further clinical correlation recommended. Thank you for your kind referral. Pippa Connelly MD, REHANA Board Certified, [place] [employer] and Rehabilitation (ABPMR) Board Certified, [place] Board [employer] Electrodiagnostic Medicine (ABEM) CODIN [id number] x 3 MTDD
== END 2023-09-21 15:02 | disposition home or self-care (01) ==
LOC: HO.NEURO 15:01
PROVIDERS: PCP Nurse Practitioner Family; Visit Provider Nurse Practitioner Family
DX: M62.81 Muscle weakness (generalized) (principal); M62.89 Other specified disorders of muscle; R53.82 Chronic fatigue, unspecified
CPT/HCPCS: 95886; 95913

== ENCOUNTER → 2023-09-21 15:04 | Outpatient (BNV) | payer OTHER, SELFPAY | PROVIDERS: PCP Nurse Practitioner Family; Visit Provider Physical Medicine & Rehabilitation | DX: G57.33 Lesion of lateral popliteal nerve, bilateral lower limbs (principal); M79.601 Pain in right arm | CPT/HCPCS: 95886; 95913 ==

== ENCOUNTER 2023-11-01 16:07 | Outpatient (AMB) | payer OTHER, SELFPAY ==
[2023-11-01 16:12] VITALS: BP 126/68; PULSE 84; O2SAT 98; BMI 31.3
--- NOTE | 2023-11-01 16:12 | A.OFFVIS_ITS ---
Vital Signs 11/01/23 16:12 Height 5 ft 1 in Weight 165 lb 9.074 oz BMI 31.3 BP 126/68 Blood Pressure Location Rt brachial Position Sitting Pulse 84 Pulse Source Pulse Oximeter Pulse Oximetry (%) 98 Oxygen Delivery Method Room Air Intake Visit Reasons: Generalized weakness,Chronic Fatigue Intake Note: Patient last seen 05/05/23 by Alie, presents today for follow up. 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 He is here to review diagnostics and determine next steps. 05/05/2023 Initial Visit: Oren, a 33-year-old male presents for initial evaluation of chronic fatigue, general joint pain and pelvic floor weakness. He reports fatigue and generalized body aches for the past 10 years. No tingling, numbness, loss of sensation. He also explained that the joint pain is focused between his shoulder blades, neck and back, and at times his knees and hips would just to hurt. He reports 1 to 3 hours of morning stiffness. Ibuprofen has been effective in managing his symptoms. He also reports h/o falling asleep abruptly. He reports violent behaviors such as kicking and sleeping during his sleep. He notes he had normal sleep study in 2016. Patient shares that has been disabled for unemployment now 4 years because it worsened and he is not able to function cognitively because of the fatigue. He has had several workups by his PCP, neurology, sleep study and urology without remarkable findings. He explains that he is at his wits end cannot understand why he is so tired. He feels weak, fatigue and sleepy. He does not have difficulty falling asleep or styaing sleep. He sleeps 9-10 hrs but feels exhausted. He reports PMH significant for anxiety, depression, bipolar 2, PTSD, diplopia, and GERD. He is on Abilify, prazosin, and sertraline. He notes he takes his medications as prescribed. He is followed by a psychologist industrial organizational every 2 weeks or monthly for medication management. He sees a therapist weekly or every 2 weeks. Oren has a hx of bipolar and depression, denies smoking or alcohol use. He refers reports that he has changed his diet completely and tries to eat very clean and healthy in the hopes that this would have helped but it has not helped him over the years. He does like to go to the gym and workout and sometimes he feels his muscles With regards to an inflammatory or connective tissue disease process, the patient denies Raynaud's phenomenon. 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 He denies dry, itchy eyes, red burning eyes needing steroids to treat; dry mouth, mouth sores or ulcers; nose bleed; ringing in the ear and thinning hair or hair loss. He denies butterfly rash on face or other rashes. He does not experience photosensitivity - getting sick or developing a rash from being out in the sun; denies blood or froth in urine. He reports urine dribble. Patient denies HAZEL or SOB(not related to anxiety) and chest pain. He has not had Carditis or Pleuritis. Patient denies any history of DVT/PE. never have had to take aspirin or a blood thinner. He denies fevers, unexplained weight-loss or weight- gain. Denies abdominal pain, blood or mucous in stool; nausea, vomiting and diarrhea and difficulty swallowing. He has been diagnosed with GERD but with his diet changes, it has been controlled. He denies family history of known connective tissue diseases or autoimmune processes. Grandfather with history of bladder prostate and colon cancer [facility] Medical History (Updated 11/01/23 @ 16:23 by Adrienne Strange [facility]) Intermittent paresthesia of hand and foot Shoulder blade pain Generalized muscle weakness Chronic fatigue Bipolar disorder Depression Anxiety Generalized headaches Acid reflux Sinusitis Surgical History No pertinent past surgical history Family History Mother High cholesterol Psychiatric disorder Fibromyalgia Osteoarthritis Social History Housing: House Patient Tobacco Use Status: Never used Tobacco e-Cigarette/Vaping Use: Never Used service: No Current occupational status: unemployed and disabled Cognitive needs: Yes Hearing needs: No Vision needs: Yes Review of Systems Const All systems reviewed & are unremarkable except as noted in HPI and below Physical Exam Vital Signs: Last Vital Signs Pulse 84 11/01/23 16:12 BP 126/68 11/01/23 16:12 Pulse Ox 98 11/01/23 16:12 Oxygen Delivery Method Room Air 11/01/23 16:12 BMI result Body Mass Index 31.3 Results Reviewed Results Reviewed: Labs 05/05/2023 CBC grossly normal, chemistry grossly normal IgG, IgA, IgM grossly normal ARCHIE negative SSA/SSB negative HLA B27 negative ESR/CRP negative Vitamin B12 304 vitamin-D 58 Nor iron panel, uric acid, CK/aldolase Assessment & Plan Assessment & Plan (1) Chronic fatigue: Code(s): R53.82 - Chronic fatigue, unspecified Category: Medical (2) Generalized body aches: Code(s): R52 - Pain, unspecified Category: Medical (3) Pelvic floor weakness, male: Code(s): M62.89 - Other specified disorders of muscle (4) Shoulder blade pain: Code(s): M89.8X1 - Other specified disorders of bone, shoulder Category: Medical (5) Generalized muscle weakness: Code(s): M62.81 - Muscle weakness (generalized) Category: Medical (6) Intermittent paresthesia of hand and foot: Code(s): R20.2 - Paresthesia of skin Category: Medical Plan After careful review of patient's history, physical examination, and diagnostics I do not think the patient's symptoms are the result of a CTD or inflammatory process. Imaging was grossly normal except for OA to shoulders, and back. No CTD or inflammatory Rheumatologic findings were appreciated from this evaluation. Given the results of the EMG studies, patient may benefit from Neuro referral and so one was given. Chronic Fatigue/Joint pain: Oren, 33-year-old male here for evaluation of chronic fatigue, back and hip pain, neck pain, shoulder pain and pelvic floor weakness. Life is currently unsettling for this is a young man who states that he has been disabled for 4 years now. He had pursued his undergraduate degree in criminal justice and was ready to work when his experience started. He finds the chronic fatigue very debilitating and body aches and pain discouraging. He cannot relate an associated event at onset. However, after an initial careful review of patient's records, physical examination, and analysis of existing diagnostics, I do not think his experienced is being caused by an underlying connective tissue disease or an inflammatory process. I explained to the patient that chronic fatigue, as a symptom of illness, can multiple causes. I think his psych history could be the main cause for fatigue, which is also a side effect of his medications. The tenderness/pain between his shoulder blades is likely a stress point. He denies injury or trauma to his joints. He denies having joint Xrays done. Orders: Referrals Neurology Referral M62.81 - Muscle weakness (generalized), R20.2 - Paresthesia of skin Coding Level of Care Code Est Pt Level 2 (07159) Diagnoses Chronic fatigue R53.82 Generalized body aches R52 Pelvic floor weakness, male M62.89 Shoulder blade pain M89.8X1 Generalized muscle weakness M62.81 Intermittent paresthesia of hand and foot R20.2
== END 2023-11-01 16:27 | disposition home or self-care (01) ==
PROVIDERS: PCP Nurse Practitioner Family; Visit Provider Nurse Practitioner Family
DX: R53.82 Chronic fatigue, unspecified (principal); R52 Pain, unspecified; M62.89 Other specified disorders of muscle; M89.8X1 Other specified disorders of bone, shoulder; M62.81 Muscle weakness (generalized); R20.2 Paresthesia of skin
CPT/HCPCS: 99212

== ENCOUNTER → 2023-11-01 16:07 | Outpatient (BNVA) | payer OTHER, SELFPAY | PROVIDERS: PCP Nurse Practitioner Family; Visit Provider Nurse Practitioner Family | DX: R53.82 Chronic fatigue, unspecified (principal); R52 Pain, unspecified; R20.2 Paresthesia of skin; M62.89 Other specified disorders of muscle; M89.8X1 Other specified disorders of bone, shoulder; M62.81 Muscle weakness (generalized) | CPT/HCPCS: 99212 ==

== ENCOUNTER 2024-07-03 13:46 | Outpatient (REF) | payer OTHER, SELFPAY ==
--- OUTSIDE RECORDS SUMMARY | 2024-07-03 16:10 | XMS_ITS | Clinical Summary ---
Author Organization [employer] Address [address] [place] [address] Care Team Providers Care Director Of Land Name Role Phone Unavailable Primary Care Provider Unavailabl e Allergies No known active allergies Medications sertraline (Zoloft) 100 MG tablet 02/02/2023 Active ARIPiprazole (Abilify) 5 MG tablet 02/07/2023 Active prazosin (Minipress) 2 MG capsule 02/07/2023 Active buPROPion SR (Wellbutrin SR) 150 MG 12 hr tablet Take by mouth 2 times daily. Do not crush, chew, or split. Active Social History Tobacco Use Types Packs/Day Years Used Date Smoking Tobacco: Never Smokeless Tobacco: Never Tobacco Cessation:Counseling Given: Not Answered Sex and Gender Information Value Date Recorded Sex Assigned at Male 02/15/2023 3:25 PM EDT Legal Sex Male 3:22 PM EDT Gender Identity Male 02/15/2023 3:25 PM EDT Sexual Orientation Straight 03/13/2023 10 :19 AM EDT Last Filed Vital Signs Vital Sign Reading Time Taken Comments Blood Pressure 144/92 03/28/2024 2:07 PM EDT Pulse 78 03/28/2024 2:07 PM EDT Temperature - - Respiratory Rate - - Oxygen Saturation - - Inhaled Oxygen Concentration - - Weight - - Height - - Body Mass Index - - Plan of Treatment Upcoming Encounters Date Type Department Care Team (Late st Contact Info) Description 08/14/2024 2:00 PM EDT Office Visit [facility] [address], [place] [phone] Shahrzad Oliveros BDS [address] [place], [place] [phone] 10/01/2024 4:00 PM EDT Office Visit [facility] [address], [place] [phone] Dacia, Angie [address] [place], [place] [phone] Health Maintenance Due Date Last Done Comments Depression Screening 1991 HIV Screening 1991 SDOH Screening 1991 Alcohol/Substance Use Screening 2003 Family Planning (PISQ) 2006 Hepatitis C Screening 2009 DTaP/Tdap/Td Vaccines (1 - Tdap) 2010 Hepatitis B Vaccines (1 of 3 - 19+ 3-dose series) 2010 COVID-19 Vaccine ( - 2023-2 5 season) 2024 Influenza Vaccine (#1) 2024 Dental Oral Exam 09/26/2024 03/28/2024, 03/08/2023 Dental Prophylaxis 09/26/2024 03/28/2024, 03/08/2023 Tobacco Screening 03/28/2025 03/28/2024 Dental X-Ray: Bitewings 03/29/2025 03/28/20 24, 03/08/2023 Dental X-Ray: Full Mouth 03/09/2026 03/08/2023 Zoster Vaccines (1 of 2) 2041 RSV Patients and Patients Aged 60 years or older (1 - 1-dose 75+ series) 2066 HIB Vaccines Aged Out No longer eligi ble based on patient's age to complete this topic HPV Vaccines Aged Out No longer eligi ble based on patient's age to complete this topic Hepatitis A Vaccines Aged Out No long er eligible based on patient's age to complete this topic IPV Vaccines Aged Out No longer eligi ble based on patient's age to complete this topic Meningococcal Vaccine Aged Out No shahbaz liz eligible based on patient's age to complete this topic Pneumococcal Vaccine: Pediatrics (0 to 5 Years) and At-Risk Patients (6 to 49) Years) Aged Out No longer eligible b ased on patient's age to complete this topic RSV under 20 months Aged Out No longe r eligible based on patient's age to complete this topic Rotavirus Vaccines Aged Out No longer eligible based on patient's age to complete this topic Procedures Procedure Name Priority Date/Time Associated Diagnosis Comments PROPHYLAXIS - ADULT Routine 03/28/2024 2 :00 PM EDT BITEWINGS - 4 RADIOGRAPHIC IMAGES Routine 03/28/2024 2:00 PM EDT PERIODIC ORAL EVALUATION - ESTABLISHED PATIENT Routine 03/28/2024 2:00 PM EDT DIAGNOSTIC - DIAGNOSTIC IMAGING - INTRAORAL - COMPREHENSIVE SERIES OF RADIOGRAPHIC IMAGES Routine 03/08/2023 4:00 PM EDT from Last 3 Months or Most Recently Relevant to Health Maintenance Insurance [employer] [id number] DENTAL - [facility]
[2024-07-03 18:21] LABS: MANUAL DIFF FLAG NO
[2024-07-03 18:30] LABS: Basophils Percent Auto 0.7 % (0-2); Eosinophils Absolute Auto 0.1 X10*3/uL (0.0-0.4); Eosinophils Percent Auto 1.1 % (0-4); Hematocrit 48.4 % (42.0-52.0); Hemoglobin 16.1 g/dl (14.0-18.0); Imm Gran Abs Auto 0.03 X10*3/uL (0.00-0.03); Imm Gran Pct Auto 0.5 % (0.0-0.4); Lymphocytes Absolute Auto 2.1 X10*3/uL (1.2-4.9); Lymphocytes Percent Auto 37.8 % (20-40); Mean Corpuscular HGB Conc 33.3 g/dl (31.0-36.0); Mean Corpuscular Hemoglobin 29.5 pg (27.0-33.0); Mean Corpuscular Volume 88.8 fL (80.0-98.0); Mean Platelet Volume 11.3 fL (9.4-12.4); Monocytes Absolute Auto 0.4 X10*3/uL (0.1-1.2); Monocytes Percent Auto 6.2 % (2-11); Neutrophils Percent Auto 53.7 % (45-73); Platelet Count 213 X10*3/uL (160-400); Red Blood Count 5.45 X10*6/uL (4.60-5.80); Red Cell Distribution Width 11.9 % (11.0-16.0); White Blood Count 5.6 X10*3/uL (4.8-10.8)
[2024-07-03 18:43] LABS: Alanine Aminotransferase 46 U/L (0-40); Albumin Level 4.5 g/dL (3.5-5.0); Alkaline Phosphatase 83 U/L (39-117); Anion Gap 9 (12-20); Aspartate Amino Transferase 30 U/L (5-37); Bilirubin Total 0.5 mg/dL (0.0-1.0); Blood Urea Nitrogen 15 mg/dL (9-16); Calcium 9.4 mg/dL (8.4-10.2); Carbon Dioxide 27 mmol/L (22-29); Chloride 107 mmol/L (96-108); Estimated Glomerular Filt Rate > 60; Glucose Random 76 mg/dL (60-115); Sodium 139 mmol/L (135-145); Total Protein 7.9 g/dL (6.5-8.0)
[2024-07-03 18:58] LABS: TSH reflex Free T4 1.54 uIU/mL (0.32-4.0)
[2024-07-03 19:11] LABS: Vitamin B12 480 pg/mL (200-900)
[2024-07-03 20:10] LABS: Erythrocyte Sedimentation Rate 3 MM/HR (0-15)
[2024-07-07 17:47] LABS: Vitamin D 25-OH, D2 5 ng/mL; Vitamin D 25-OH, D3 33 ng/mL; Vitamin D 25-OH, Total 38 ng/mL (30-100)
[2024-07-09 09:58] LABS: Acetylcholine Recept. Blocking <15 (<15)
[2024-07-09 13:38] LABS: Anti Nuclear Antibody Screen NEGATIVE (NEGATIVE)
[2024-07-09 16:38] LABS: Acetylcholine Recep Modulating <1
[2024-07-10 01:18] LABS: Acetylcholine Receptor Binding <0.30 nmol/L
== END 2024-07-03 13:47 | disposition home or self-care (01) ==
LOC: HO.HKASLDS 13:46
PROVIDERS: PCP Nurse Practitioner Family; Visit Provider Psychiatry & Neurology Neurology
DX: R53.82 Chronic fatigue, unspecified (principal); M62.81 Muscle weakness (generalized); H53.2 Diplopia; G47.10 Hypersomnia, unspecified; R06.81 Apnea, not elsewhere classified
CPT/HCPCS: 36415; 80053; 82306; 82607; 82746; 84443; 85025; 85652; 86038; 86041; 86042; 86043; 99212

== ENCOUNTER → 2024-08-16 20:30 | Outpatient (REF) | payer OTHER, SELFPAY | LOC: HO.SL 20:30 | PROVIDERS: PCP Nurse Practitioner Family; Visit Provider Psychiatry & Neurology Neurology | DX: R06.81 Apnea, not elsewhere classified (principal); R53.82 Chronic fatigue, unspecified; G47.10 Hypersomnia, unspecified | CPT/HCPCS: 95810 ==

== ENCOUNTER → 2024-08-16 21:53 | Outpatient (BNV) | payer OTHER, SELFPAY | PROVIDERS: PCP Nurse Practitioner Family; Visit Provider Psychiatry & Neurology Neurology | DX: R53.83 Other fatigue (principal) | CPT/HCPCS: 95810 ==

== ENCOUNTER 2024-12-20 12:24 | Outpatient (AMB) | payer OTHER, SELFPAY ==
--- NOTE | 2024-12-20 12:27 | MHC.PC.OV ---
Vital Signs 12/20/24 12:31 Height 5 ft 3 in Weight 155 lb 2 oz BMI 27.5 BP 111/66 Blood Pressure Location Lt brachial Position Sitting Respiration 16 Pulse 73 Pulse Source Pulse Oximeter Temp 98.2 F Temp Source Oral Pulse Oximetry (%) 100 Oxygen Delivery Method Room Air Intake Visit Reasons: Eyes surgery Intake Note: patient here pre op Scrub Nurse Required: No Allergies Seasonal Allergies Allergy (Severe, Verified 12/20/24 12:29) Breathing complication Outdoor Pollen Allergy (Severe, Uncoded 07/03/24 14:24) Breathing Complications Tobacco use date assessed: 12/20/24 Dental Screening Dental Screen Date: 12/20/24 Did you have a dental visit in the last 12 months?: Yes Did you have a dental problem in the last 6 months where you did not have access to dental care?: No Was dental information given to patient?: Patient has dentist HPI HPI Comments History of Present Illness Details 34-year-old male presents for preop clearance for surgery for one of his eyes. He has binocular diplopia of both eyes. He is usually followed by [facility] but scheduled to have the surgery with Dr. Gil, [facility], in 01/08/2025. He notes that he has been making healthy dietary choices and exercising routinely. He offers no complaints and denies acute symptoms at this time. [facility] Medical History Intermittent paresthesia of hand and foot Shoulder blade pain Generalized muscle weakness Chronic fatigue Bipolar disorder Depression Anxiety Generalized headaches Acid reflux Sinusitis Surgical History No pertinent past surgical history Family History Mother High cholesterol Psychiatric disorder Fibromyalgia Osteoarthritis Social History Housing: House Patient Tobacco Use Status: Never used Tobacco e-Cigarette/Vaping Use: Never Used Second Hand Smoke Exposure: No service: No Current occupational status: unemployed and disabled Cognitive needs: Yes Hearing needs: No Vision needs: Yes Questionnaire PHQ-9 Over the last 2 weeks, how often have you been bothered by any of the following problems? 1. Little interest or pleasure in doing things: several days 2. Feeling down, depressed, or hopeless: several days 3. Trouble falling or staying asleep, or sleeping too much: not at all 4. Feeling tired or having little energy: more than half the days 5. Poor appetite or overeating: not at all 6. Feeling bad about yourself - or that you are a failure or have let yourself or your family down: not at all 7. Trouble concentrating on things, such as reading the newspaper or watching television: not at all 8. Moving or speaking so slowly that other people could have noticed. Or the opposite - being so fidgety or restless that you have been moving around a lot more than usual: not at all 9. Thoughts that you would be better off or of hurting yourself in some way: not at all Total score: 4 Depression Screening Interpretation: Negative Depression Screening Done: Yes Source: Developed by Drs. Terry Freed, Randa Zimmer, Rom Ambriz and colleagues, with an educational riana from [employer]. Thrive Questionnaire Date Thrive assessed: 01/27/23 I am a: Patient What is your living situation today?: I have a steady place to live Within the past 12 months, did the food you bought not last and you didn't have the money to get more?: Never true Within the past 12 months, did you worry whether your food would run out before you got money to buy more?: Never true Do you have trouble paying for medicines?: No Do you have trouble getting transportation to medical appointments?: No Do you have trouble paying your heating and electricity bill?: No Do you have trouble taking care of your child, family member or friend?: No Do you have trouble with day-to-day activities such as bathing, preparing meals, shopping, managing finances, etc.?: No Are you currently unemployed and looking for a job?: No Are you interested in more education?: No Please select the resources that you would like help with: None Currently or been in a relationship where the following occur: No concerns reported THRIVE Score: 0 AUDIT C Alcohol Use Questionnaire (AUDIT-C) 1. How often do you have a drink containing alcohol?: Never Total Score: 0 ROCKY-7 AMB Questionnaire ROCKY-7 Date ROCKY - 7 assessed: 01/27/23 Feeling nervous, anxious, or on edge: 1 = Several days Not being able to stop or control worryin = More than half the days Worrying too much about different things: 2 = More than half the days Trouble relaxin = Several days Being so restless that it is hard to sit still: 1 = Several days Becoming easily annoyed or irritable: 1 = Several days Feeling afraid as if something awful might happen: 1 = Several days Total ROCKY-7 score (0-4 normal; 5-9 mild; 10-14 moderate; 15-21 severe): 9 Source: Developed by Drs. Terry Freed, Randa Zimmer, Rom Ambriz and colleagues, with an educational riana from [employer]. Review of Systems Const Details: Const Denies chills, Denies fatigue, Denies fever(s), Denies headache(s) and Denies weakness ENT Denies dizziness and Denies headache(s) Card Denies chest pain, Denies lightheadedness, Denies dyspnea and Denies other (Palpitations) Resp Denies cough, Denies dyspnea, Denies wheezing and Denies other ( shortness of breath) GI Denies abdominal pain, Denies melena, Denies hematochezia, Denies change in bowel habits, Denies dyspepsia and Denies nausea Denies hematuria and Denies dysuria Musc Denies abnormal gait, Denies myalgias, Denies arthralgias, Denies numbness and Denies tingling Skin/Breast Denies rash, Denies unusual bruising and Denies wounds Neuro Denies abnormal gait, Denies dizziness, Denies headache(s), Denies memory loss, Denies numbness, Denies Sensory deficit (Neuro), Denies tingling and Denies weakness Psych Denies anxiety, Denies depression, Denies memory loss Endo Denies cold intolerance, Denies fatigue, Denies heat intolerance, Denies polydipsia and Denies polyuria Aller/Immun Denies wheezing Physical exam (Primary Care) Vital Signs: Last Vital Signs Temp 98.2 F 12/20/24 12:31 Pulse 73 12/20/24 12:31 Resp 16 12/20/24 12:31 BP 111/66 12/20/24 12:31 Pulse Ox 100 12/20/24 12:31 Oxygen Delivery Method Room Air 12/20/24 12:31 BMI result Body Mass Index 27.5 Tobacco/Smoking Status: Tobacco use Status Tobacco use date assessed 12/20/24 12/20/24 12:35 Patient Tobacco Use Status Never used Tobacco 12/20/24 12:27 e-Cigarette/Vaping Use Never Used 12/20/24 12:27 PHQ-9: PHQ-9 Score PHQ-9: Total score 4 12/20/24 12:27 Depression Screening Interpretation: Negative Thrive Assessment: Date of Thrive Assessment Date Thrive assessed 01/27/23 12/20/24 12:27 Currently or been in a relationship where the following occur: No concerns reported Const Other: General: no acute distress and well developed Nutritional Appearance: well nourished Orientation/consciousness: patient oriented x3 HENMT Head: Yes normocephalic and Yes atraumatic Eyes General: appearance normal, both eyes and all related structures Pupils: Equal, round and reactive pupils present EOM: EOMs intact bilaterally Resp Effort & Inspection: normal respiratory effort Auscultation: clear to auscultation bilaterally Cardio Rate: regular rate Rhythm: regular rhythm Heart sounds: S1 normal heart sound present, S2 normal heart sound present, no gallops, no murmurs and no rubs GI Palpation (GI): No Abdominal aortic bruit present, Soft to palpation, nontender, No hepatosplenomegaly present and No Rebound tenderness present Auscultation: normal bowel sounds General: Yes no CVA tenderness Back/Spine/Pelvis Back: no CVA tenderness Cervical Spine: cervical ROM normal and No Cervical spine tenderness Thoracic/Lumbar Spine: thoraco-lumbar ROM normal, No pain with thoraco-lumbar ROM, No thoracic spinal tenderness and No lumbar spinal tenderness Extrem General: Yes normal to inspection, No edema and No calf tenderness Skin General: warm and dry. Normal skin color. Normal skin turgor Neuro General: patient oriented x3, gait normal and no focal neuro deficit Cranial nerves: Yes Equal, round and reactive pupils present Cognition (Neuro): normal cognition Gait exam (Neuro): Normal gait present Sensory Exam: No Sensory deficit (Neuro) Psych Appearance: grossly normal Affect: normal affect Attitude: cooperative Thought process: Normal thought process present Coding Level of Care Code Est Pt Level 3 (65700) Diagnoses Diplopia H53.2 Preoperative clearance Z01.818 Laboratory tests ordered as part of a complete physical exam (CPE) Z00.00 Assessment & Plan Assessment & Plan (1) Diplopia: Code(s): H53.2 - Diplopia Category: Medical Plan: Patient is scheduled to have eye surgerywith Dr. Gil, [facility], in 01/08/2025. Recent CBC and CMP in June 2024 were unremarkable. Normal vital signs today. Physical exam is normal. No focal neuro deficit. No current contraindications for eye surgery. Advised to follow-up for an extended physical exam in 1-2 months; perform lab work prior. Return sooner with symptoms or concerns. Verbalized understanding and agreed with the plan. (2) Preoperative clearance: Code(s): Z01.818 - Encounter for other preprocedural examination Category: Medical Plan: Plan as above. (3) Laboratory tests ordered as part of a complete physical exam (CPE): Code(s): Z00.00 - Encounter for general adult medical examination without abnormal findings Category: Medical Plan: Fasting labs ordered as part of a complete physical exam. Advised to fast for at least 10 hours before getting labs drawn. May drink water Verbalized understanding and agreed with treatment plan. Orders: Orders Lipid Panel Today Z00.00 - Encounter for general adult medical examination without abnormal findings Microalbumin, Random (w Creat) Today Z00.00 - Encounter for general adult medical examination without abnormal findings UA CC w/rflx Micro + Cult Today Z00.00 - Encounter for general adult medical examination without abnormal findings
--- OUTSIDE RECORDS SUMMARY | 2024-12-20 12:27 | XMS_ITS | Clinical Summary ---
Author Organization [employer] Address [address] [place] [address] Care Team Providers Care Computer Programmer Analyst Name Role Phone Unavailable Primary Care Provider [...] Relevant to Health Maintenance Insurance [employer] [place] [id number] [facility]
--- OUTSIDE RECORDS SUMMARY | 2024-12-20 12:27 | XMS_ITS | Clinical Summary ---
Author Organization [facility] Address [address] [place] [phone] Phone Care Team Providers Care Coffee Roaster Helper Name Role Phone Emil Carney MD Primary Care Provider [phone] Allergies No known active allergies Medications sertraline [...] topic Medical Devices Not on file Insurance [facility] [employer] Care Teams Coffee Roaster Helper Relationship Specialty Start Date End Date Emil Carney MD [address] [place] [address] PCP - General 07/26/17 Additional Source Comments The information contained in this document represents components of the legal health record. It is not the complete legal health record.[facility]
[2024-12-20 12:31] VITALS: BP 111/66; PULSE 73; RESP 16; TEMP 36.8; O2SAT 100; BMI 27.5
== END 2024-12-20 13:02 | disposition home or self-care (01) ==
LOC: HO.HMCFM 12:25
PROVIDERS: PCP Nurse Practitioner Family; Visit Provider Nurse Practitioner Family
DX: H53.2 Diplopia (principal); Z01.818 Encounter for other preprocedural examination

== ENCOUNTER → 2024-12-20 12:24 | Outpatient (BNVA) | payer OTHER, SELFPAY | PROVIDERS: PCP Nurse Practitioner Family; Visit Provider Nurse Practitioner Family | DX: Z01.818 Encounter for other preprocedural examination (principal); H53.2 Diplopia | CPT/HCPCS: 99212 ==

== ENCOUNTER 2025-01-08 11:19 | Day surgery (SDC) | payer OTHER, SELFPAY ==
--- OUTSIDE RECORDS SUMMARY | 2024-12-19 13:50 | XMS_ITS | Clinical Summary ---
Author Organization [employer] Address [address] [facility] [address] [place] [address] Care Team Providers Care Quantitative Developer Name Role Phone Unavailable Primary Care Provider Unavailabl e Allergies No known active allergies Medications sertraline (Zoloft) 100 MG tablet 02/02/2023 Active ARIPiprazole (Abilify) 5 MG tablet 02/07/2023 Active prazosin (Minipress) 2 MG capsule 02/07/2023 Active buPROPion SR (Wellbutrin SR) 150 MG 12 hr tablet Take by mouth 2 times daily. Do not crush, chew, or split. Active buPROPion XL (Wellbutrin XL) 150 MG 24 hr tablet Take 150 mg by mouth in the morning. 07/24/2024 Active Active Problems No known active problems Social History Tobacco Use Types Packs/Day Years [...] Sign Reading Time Taken Comments Blood Pressure 124/80 08/15/2024 3:36 PM EDT Pulse 78 03/28/2024 2:07 PM EDT Temperature - - Respiratory Rate - - Oxygen Saturation - - Inhaled Oxygen Concentration - - Weight - - Height - - Body Mass Index - - Plan of Treatment Health Maintenance Due Date Last Done Comments Depression Screening 1991 HIV Screening 1991 SDOH Screening 1991 Disability Screening 1991 Alcohol/Substance Use Screening 2003 Family Planning (PISQ) 2006 HPV Vaccines (1 - Male 3-dos e series) 2006 Hepatitis C Screening 2009 DTaP/Tdap/Td Vaccines (1 - Tdap) 2010 Hepatitis B Vaccines (1 of 3 - 19+ 3-dose series) 2010 COVID-19 Vaccine (1 - 2023-2 5 season) 2024 Dental Oral Exam 09/26/2024 03/28/2024, 03/08/2023 Dental Prophylaxis 09/26/2024 03/28/2024, 03/08/2023 Influenza Vaccine (#1) 2025 Dental X-Ray: Bitewings 03/29/2025 03/28/20, 03/08/2023 Tobacco Screening 08/19/2025 08/19/2024 Dental X-Ray: Full Mouth 03/09/2026 03/08/2023 Zoster [...] patient's age to complete this topic Meningococcal B Vaccine Aged Out No l onger eligible based on patient's age to complete this topic Meningococcal Vaccine Aged Out No shahbaz liz eligible based on patient's age to complete this topic Pneumococcal Vaccine: Pediatrics (0 to 5 Years) and At-Risk Patients (6 to 49) Years Aged Out No longer eligible b ased [...] ESTABLISHED PATIENT Routine 03/28/2024 2:00 PM EDT INTRAORAL - COMPLETE SERIES OF RADIOGRAPHIC IMAGES Routine 03/08/2023 4:00 PM EDT from Last 3 Months or Most Recently Relevant to Health Maintenance Insurance [employer] [place] [id number] [facility]
--- OUTSIDE RECORDS SUMMARY | 2024-12-19 13:50 | XMS_ITS | Clinical Summary ---
Author Organization [facility] Address [address] [place] [phone] Phone Care Team Providers Care Undercollar Baster Name Role Phone Emil Carney MD Primary Care Provider [phone] Allergies No known active allergies Medications sertraline (ZOLOFT) 100 MG tablet Take 100 mg by mouth daily. Active fexofenadine (FREDDY) 180 MG tablet Take 180 mg by mouth daily. Active azelastine (ASTELIN) 137 mcg (0.1 %) nasal spray 1 spray by Nasal route 2 (two) times a day. Use in each nostril as directed Active Active Problems No known active problems Family History Medical History Relation Comments Glaucoma Maternal Aunt Relation Status Comments Maternal Aunt Social History Tobacco Use Types Packs/Day Years Used Date Smoking Tobacco: Never Smokeless Tobacco: Never Alcohol Use Standard Drinks/Week Comments No 0 (1 standard drink = 0.6 oz pur e alcohol) Education Answer Date Recorded Are you interested in more education? Not on miles e 09/23/2022 Are you concerned about learning? Not on file 09/23/2022 No 09/23/2022 No 09/23/2022 Digital Access Answer Date Recorded No 10/22/2022 No 10/22/2022 No 10/22/2022 Reliable internet access at home? Not on file 10/22/2022 Device with a working camera? Not on file Sex and Gender Information Value Date Recorded Sex Assigned at Not on file Legal Sex Male 1:45 PM EST Gender Identity Not on file Sexual Orientation Not on file Plan of Treatment Health Maintenance Due Date Last Done Comments DEPRESSION SCREENING 2003 HEPATITIS C SCREENING 2009 HIV ONE-TIME SCREENING (18-6 5 YEARS) 2009 COVID-19 VACCINE (2023-2 5 season) 2024 Adult Td,Tdap Booster 04/21/2030 04/21/2020 SMOKING STATUS SCREENING (On ce After 26 Yrs) Completed 07/26/2017 HEPATITIS A VACCINES Aged Out No long er eligible based on patient's age to complete this topic HIB VACCINES Aged Out No longer eligi ble based on patient's age to complete this topic MENINGOCOCCAL VACCINES (ACWY) Aged Out No longer eligible based on patient's age to complete this topic MENINGOCOCCAL VACCINES (B) Aged Out N o longer eligible based on patient's age to complete this topic PNEUMOCOCCAL VACCINES (0-49 years) Aged Out No longer eligible based on patient's age to complete this topic Medical Devices Not on file Insurance [facility] [employer] Care Teams Undercollar Baster Relationship Specialty Start Date End Date Emil Carney MD [address] [place] [address] PCP - General 07/26/17 Additional Source Comments The information contained in this document represents components of the legal health record. It is not the complete legal health record.[facility]
[2025-01-03 07:56] VITALS: BMI 27.5
[2025-01-03 07:59] VITALS: BMI 27.5
--- NOTE | 2025-01-07 09:04 | HO.ANESPROP2 ---
Documented by User: Greta Rene NP 01/07/25 09:04 HPI - Anesthesia Eval Consult details Narrative: 34yo M for Left Medial Rectus Eye Muscle Recession PMFSH Active Problems Active Problems: All Active Problems Preoperative clearance (Acute) Intermittent paresthesia of hand and foot (Acute) Shoulder blade pain (Acute) Generalized muscle weakness (Acute) Chronic fatigue (Acute) Witnessed episode of apnea (Acute) Diplopia (Acute) PTSD (post-traumatic stress disorder) (Acute) Bipolar II disorder (Acute) Depression (Acute) Anxiety (Acute) Excessive sleepiness (Acute) Generalized body aches (Acute) Laboratory tests ordered as part of a complete physical exam (CPE) (Acute) Past Medical History Medical History Intermittent paresthesia of hand and foot Shoulder blade pain Generalized muscle weakness Chronic fatigue Bipolar disorder Depression Anxiety Generalized headaches Acid reflux Sinusitis Family History Family History Mother High cholesterol Psychiatric disorder Fibromyalgia Osteoarthritis Surgical History Surgical History Hx of cystoscopy History of esophagogastroduodenoscopy (EGD) H/O colonoscopy No pertinent past surgical history Social History Social History Housing: House Patient Tobacco Use Status: Never used Tobacco e-Cigarette/Vaping Use: Never Used Second Hand Smoke Exposure: No Use of substances other than those prescribed or required for medical reasons: No Are you DNR?: No Advance Directives: No Advance Directives Information Provided: Yes Advance Directives on File: No service: No Current occupational status: unemployed and disabled Cognitive needs: Yes Hearing needs: No Vision needs: Yes Meds Allergies Allergy/AdvReac Type Severity Reaction Status Date / Time Seasonal Allergies Allergy Severe Breathing Verified 01/08/25 12:40 complication Outdoor Pollen Allergy Severe Breathing Uncoded 07/03/24 14:24 Complications Home Medications ?Medication ?Instructions ?Recorded ?Confirmed ?Last Taken ?Type multivitamin 1 tab PO DAILY 01/27/23 01/08/25 Unknown History prazosin 2 mg capsule 2 mg PO BEDTIME 01/27/23 01/08/25 Unknown History bupropion HCl 150 mg 24 hr tablet, 150 mg PO DAILY 07/03/24 01/08/25 Unknown History extended release fluoxetine 10 mg tablet 10 mg PO DAILY 01/08/25 01/08/25 Unknown History Exam Height,Weight and Vital Signs: Height 5 ft 3 in Weight 70.307 kg Assessment and Plan Assessment Anesthesia Assessment: Chart Reviewed Documented by User: Desiree Neff MD 01/08/25 13:52 PMFSH Past Medical History Medical History Intermittent paresthesia of hand and foot Shoulder blade pain Generalized muscle weakness Chronic fatigue Bipolar disorder Depression Anxiety Generalized headaches Acid reflux Sinusitis Family History Family History Mother High cholesterol Psychiatric disorder Fibromyalgia Osteoarthritis Surgical History Surgical History Hx of cystoscopy History of esophagogastroduodenoscopy (EGD) H/O colonoscopy No pertinent past surgical history History of Problems with Anesthesia: No Social History Social History Housing: House Patient Tobacco Use Status: Never used Tobacco e-Cigarette/Vaping Use: Never Used Second Hand Smoke Exposure: No Use of substances other than those prescribed or required for medical reasons: No Are you DNR?: No Advance Directives: No Advance Directives Information Provided: Yes Advance Directives on File: No service: No Current occupational status: unemployed and disabled Cognitive needs: Yes Hearing needs: No Vision needs: Yes Meds Allergies Allergy/AdvReac Type Severity Reaction Status Date / Time Seasonal Allergies Allergy Severe Breathing Verified 01/08/25 12:40 complication Outdoor Pollen Allergy Severe Breathing Uncoded 07/03/24 14:24 Complications Home Medications ?Medication ?Instructions ?Recorded ?Confirmed ?Last Taken ?Type multivitamin 1 tab PO DAILY 01/27/23 01/08/25 Unknown History prazosin 2 mg capsule 2 mg PO BEDTIME 01/27/23 01/08/25 Unknown History bupropion HCl 150 mg 24 hr tablet, 150 mg PO DAILY 07/03/24 01/08/25 Unknown History extended release fluoxetine 10 mg tablet 10 mg PO DAILY 01/08/25 01/08/25 Unknown History Exam Airway Mallampati Class: II TM Dist: >3cm Neck ROM: Full Loose/Missing/Broken Teeth: No Heart: RRR Lungs: CTA Assessment and Plan Assessment Anesthesia Assessment: Anesthesia Plan Discussed Final Anesthetic Review History of Problems with Anesthesia: No NPO: Yes ASA Class: II Final Preanesthetic Review: Meds/Allgs Chart Reviewed, Consent Obtained/Reviewed and Anes Risks/Benef Reviewed Patient Risk: Low Procedure Risk: Low Anesthetic Plan Anesthetic Plan: GA Disposition: Standard PACU
[2025-01-08] VITALS (8 sets, daily range): BP systolic 118–137; BP diastolic 76–97; PULSE 67–84; RESP 16–18; TEMP 36.2–36.6; O2SAT 96–99
[2025-01-08] MEDS: Lactated Ringers 1,000 ML 100 ML IVCONT (12:39)
--- NOTE | 2025-01-08 14:33 | HO.OPHTHAL ---
Ophthalmology Operative Note Date of Service: 01/08/25 Narrative: Diagnosis esotropia. Postoperative diagnosis same. Procedure 3.5 mm recession of the left medial rectus muscle. Surgeon Dr. Gil. Anesthesia general. Complications none. The patient was brought to the operating room placed under general anesthesia. The eyes were prepped and draped in the usual sterile ophthalmic fashion. A lid speculum was placed in the left eye and an incision was made at bare sclera in the inferonasal fornix. The medial rectus was hooked and secured with a double-armed Vicryl suture. The muscle was disinserted from the globe and reattached to a position 3.5 mm behind the original insertion. Conjunctiva was closed with interrupted Vicryl sutures. The patient was then awoken from general anesthesia and discharged to postoperative recovery in good condition.
== END 2025-01-08 16:03 | disposition home or self-care (01) ==
PROVIDERS: PCP Nurse Practitioner Family; Visit Provider Ophthalmology
PROC: (CPT 67311; principal; 2025-01-08 14:30)
DX: H50.32 Intermittent alternating esotropia (principal); H53.2 Diplopia; R51.9 Headache, unspecified; R53.82 Chronic fatigue, unspecified; J30.1 Allergic rhinitis due to pollen; J32.9 Chronic sinusitis, unspecified; M62.81 Muscle weakness (generalized); R20.2 Paresthesia of skin; K21.9 Gastro-esophageal reflux disease without esophagitis; F31.9 Bipolar disorder, unspecified; F41.9 Anxiety disorder, unspecified
CPT/HCPCS: 67311; J0131; J1100; J1596; J1885; J2003; J2250; J2405; J2704; J3010

== ENCOUNTER 2025-04-21 11:06 | Outpatient (REF) | payer OTHER, SELFPAY ==
[2025-04-21 14:24] LABS: Appearance Urine Cloudy; Glucose Urine UA Negative (Negative); PH 8.5 (5.0-9.0); Specific Gravity - Urine 1.020 (1.005-1.025)
[2025-04-21 14:25] LABS: MANUAL DIFF FLAG NO
[2025-04-21 14:34] LABS: Hematocrit 47.2 % (42.0-52.0); Hemoglobin 15.7 g/dl (14.0-18.0); Imm Gran Abs Auto 0.02 X10*3/uL (0.00-0.03); Imm Gran Pct Auto 0.4 % (0.0-0.4); Lymphocytes Absolute Auto 2.0 X10*3/uL (1.2-4.9); Mean Corpuscular HGB Conc 33.3 g/dl (31.0-36.0); Mean Corpuscular Hemoglobin 29.8 pg (27.0-33.0); Mean Corpuscular Volume 89.6 fL (80.0-98.0); NRBC Abs Auto 0.000 X10*3/uL (0.0-0.012); NRBC Pct Auto 0.0 /100WBC (0.0-0.2); Platelet Count 196 X10*3/uL (160-400); Red Blood Count 5.27 X10*6/uL (4.60-5.80); White Blood Count 5.0 X10*3/uL (4.8-10.8)
[2025-04-21 15:32] LABS: Anion Gap 11 (12-20)
[2025-04-21 15:36] LABS: Alanine Aminotransferase 28 U/L (0-40); Albumin Level 4.7 g/dL (3.5-5.0); Alkaline Phosphatase 71 U/L (39-117); Aspartate Amino Transferase 27 U/L (5-37); Blood Urea Nitrogen 21 mg/dL (9-16); Calcium 9.6 mg/dL (8.4-10.2); Carbon Dioxide 29 mmol/L (22-29); Chloride 105 mmol/L (96-108); Cholesterol 166 mg/dL (<200); Estimated Glomerular Filt Rate > 60; HDL Cholesterol 44 mg/dL (>40); Potassium 3.9 mmol/L (3.3-5.1); Sodium 141 mmol/L (135-145); Total Protein 7.2 g/dL (6.5-8.0); Triglycerides 74 mg/dL (<150)
[2025-04-21 15:56] LABS: CT PCR Urine NOT DETECTED (Not Detect.); NG PCR Urine NOT DETECTED (Not Detect.)
[2025-04-21 17:01] LABS: Microalbum/Creatinine Ratio Ur 5.7 ug/mg cr (<30)
[2025-04-22 04:39] LABS: Syphilis Screen Nonreactive (Nonreactive)
[2025-04-22 05:06] LABS: HBS Num1 > 1000.00 mIU/mL (0-7.99); HBc Num1 0.10 S/CO (0.00-0.79); HBsAGNum1 0.33 S/CO (0.00-0.99); HIV Num 1 0.12 S/CO (0.00-0.99); Hepatitis B Surface Antigen Negative (Negative); ~HepC Num1 0.08 S/CO (0.00-0.79); ~Hepatitis B Surface Antibody REACTIVE (Nonreactive); ~Hepatitis C Antibody Nonreactive (Nonreactive)
== END 2025-04-21 11:07 | disposition home or self-care (01) ==
LOC: HO.WFDLDS 11:06
PROVIDERS: PCP Nurse Practitioner Family; Visit Provider Nurse Practitioner Family
DX: Z00.00 Encounter for general adult medical examination without abnormal findings (principal); F41.9 Anxiety disorder, unspecified; F32.A Depression, unspecified; Z79.899 Other long term (current) drug therapy; Z20.2 Contact with and (suspected) exposure to infections with a predominantly sexual mode of transmission; Z13.31 Encounter for screening for depression; Z13.39 Encounter for screening examination for other mental health and behavioral disorders
CPT/HCPCS: 80053; 80061; 81003; 82043; 82306; 82570; 84443; 85025; 86704; 86706; 86780; 86803; 87340; 87389; 87491; 87591; 96127; 99395

== ENCOUNTER 2025-04-21 11:06 | Outpatient (AMB) | payer OTHER, SELFPAY ==
--- NOTE | 2025-04-21 11:10 | MHC.PC.OV ---
Vital Signs 04/21/25 11:15 Height 5 ft 4 in Weight 156 lb 8 oz BMI 26.9 BP 130/62 Blood Pressure Location Rt brachial Position Sitting Respiration 16 Pulse 72 Pulse Source Pulse Oximeter Temp 97.6 F Temp Source Oral Pulse Oximetry (%) 99 Oxygen Delivery Method Room Air Intake Visit Reasons: Physical / Rescheduled from 04/01 Intake Note: patient here for CPE Aws Consultant Required: No Allergies Seasonal Allergies Allergy (Severe, Verified 04/21/25 11:30) Breathing complication Outdoor Pollen Allergy (Severe, Uncoded 04/21/25 11:30) Breathing Complications Medication List - Last Reconciled 04/21/25 by Ai Molina CNP bupropion HCl XL 150 mg PO DAILY fluoxetine 10 mg PO DAILY multivitamin 1 tab PO DAILY Tobacco use date assessed: 04/21/25 Dental Screening Dental Screen Date: 04/21/25 Did you have a dental visit in the last 12 months?: Yes Did you have a dental problem in the last 6 months where you did not have access to dental care?: No Was dental information given to patient?: Patient has dentist HPI HPI Comments History of Present Illness Details 35-year-old male presents for an extended physical exam. He is on bupropion 150 mg daily and fluoxetine 20 mg daily. He admits to taking his medications as prescribed without adverse reactions. He notes that his anxiety and depressive symptoms are generally well controlled. He notes that he was diagnosed with sleep apnea by [employer] after a home sleep study test in October 2024. Acute issue(s) - None Past Medical History - Anxiety, depression, sleep apnea on CPAP, bipolar 2, PTSD, diplopia, and GERD. Social History - Nonsmoker. Does not vape. Does not drink alcohol. Denies recreational drug use - Has been making healthy dietary choices. Exercises routinely. Generally sleep well - He notes that he has not been sexually active in the past 8-9 months. He has no concerns for STDs. Requests labs for STD screening Health maintenance - Last eye exam was in 07/2024 with [facility] - Last dental visit was in 07/2024 - Last Tdap was in 04/21/2020 - Has not been vaccinated for the flu this season; declines vaccination Specialists - BHN: PMHNP once monthly, therapist once weekly - Ophthalmology [facility] Medical History Intermittent paresthesia of hand and foot Shoulder blade pain Generalized muscle weakness Chronic fatigue Bipolar disorder Depression Anxiety Generalized headaches Acid reflux Sinusitis Surgical History Hx of cystoscopy History of esophagogastroduodenoscopy (EGD) H/O colonoscopy No pertinent past surgical history Family History Mother High cholesterol Psychiatric disorder Fibromyalgia Osteoarthritis Social History Housing: House Are you a primary child care nurse to a significant other at home: No Patient Tobacco Use Status: Never used Tobacco e-Cigarette/Vaping Use: Never Used Second Hand Smoke Exposure: No service: No Current occupational status: unemployed and disabled Cognitive needs: Yes Hearing needs: No Vision needs: Yes Questionnaire PHQ-9 Over the last 2 weeks, how often have you been bothered by any of the following problems? 1. Little interest or pleasure in doing things: several days 2. Feeling down, depressed, or hopeless: several days 3. Trouble falling or staying asleep, or sleeping too much: more than half the days 4. Feeling tired or having little energy: more than half the days 5. Poor appetite or overeating: not at all 6. Feeling bad about yourself - or that you are a failure or have let yourself or your family down: not at all 7. Trouble concentrating on things, such as reading the newspaper or watching television: several days 8. Moving or speaking so slowly that other people could have noticed. Or the opposite - being so fidgety or restless that you have been moving around a lot more than usual: not at all 9. Thoughts that you would be better off or of hurting yourself in some way: several days Total score: 8 Depression Screening Interpretation: Positive Depression Screening Follow-up: Existing condition and In treatment Depression Screening Done: Yes Source: Developed by Drs. Terry Freed, Randa Zimmer, Rom Ambriz and colleagues, with an educational riana from [employer]. Thrive Questionnaire Date Thrive assessed: 04/21/25 I am a: Patient What is your living situation today?: I have a steady place to live Within the past 12 months, did the food you bought not last and you didn't have the money to get more?: Never true Within the past 12 months, did you worry whether your food would run out before you got money to buy more?: Never true Do you have trouble paying for medicines?: No Do you have trouble getting transportation to medical appointments?: No Do you have trouble paying your heating and electricity bill?: No Do you have trouble taking care of your child, family member or friend?: No Do you have trouble with day-to-day activities such as bathing, preparing meals, shopping, managing finances, etc.?: No Are you currently unemployed and looking for a job?: No Are you interested in more education?: No Please select the resources that you would like help with: None Currently or been in a relationship where the following occur: No concerns reported THRIVE Score: 0 AUDIT C Alcohol Use Questionnaire (AUDIT-C) 1. How often do you have a drink containing alcohol?: Never 3. How often do you have six or more drinks on one occasion?: Never Total Score: 0 Score Reviewed/Action Taken: Yes ROCKY-7 AMB Questionnaire ROCKY-7 Date ROCKY - 7 assessed: 04/21/25 Feeling nervous, anxious, or on edge: 2 = More than half the days Not being able to stop or control worryin = More than half the days Worrying too much about different things: 1 = Several days Trouble relaxin = Several days Being so restless that it is hard to sit still: 0 = Not at all Becoming easily annoyed or irritable: 1 = Several days Feeling afraid as if something awful might happen: 1 = Several days Total ROCKY-7 score (0-4 normal; 5-9 mild; 10-14 moderate; 15-21 severe): 8 Source: Developed by Drs. Terry Freed, Randa Zimmer, Rom Ambriz and colleagues, with an educational riana from [employer]. ROCKY-7 Assessment Billing ROCKY-7 Assessment Tool: ROCKY-7 Assessment 00855 Review of Systems Const Details: Denies chills, Denies fatigue, Denies fever(s), Denies headache(s) and Denies weakness HEENT Denies change in vision, Denies dizziness, Denies headache(s), Denies hearing loss, Denies nasal congestion, Denies sinus pain, Denies sinus pressure and Denies sore throat Card Denies chest pain, Denies lightheadedness, Denies dyspnea and Denies other (palpitations) Resp Denies cough, Denies dyspnea and Denies wheezing GI Denies abdominal pain, Denies melena, Denies hematochezia, Denies change in bowel habits, Denies dyspepsia and Denies nausea Denies hematuria and Denies dysuria Musc Denies abnormal gait, Denies myalgias, Denies arthralgias, Denies numbness and Denies tingling Skin/Breast Denies rash, Denies unusual bruising and Denies wounds Neuro Denies abnormal gait, Denies dizziness, Denies headache(s), Denies memory loss, Denies numbness, Denies Sensory deficit (Neuro), Denies tingling and Denies weakness Psych Denies anxiety, Denies depression and Denies memory loss Endo Denies cold intolerance, Denies fatigue, Denies heat intolerance, Denies polydipsia and Denies polyuria Ildefonso/Lymph Denies easy bleeding and Denies easy bruising Aller/Immun Denies wheezing Physical exam (Primary Care) Vital Signs: Last Vital Signs Temp 97.6 F 04/21/25 11:15 Pulse 72 04/21/25 11:15 Resp 16 04/21/25 11:15 BP 130/62 04/21/25 11:15 Pulse Ox 99 04/21/25 11:15 Oxygen Delivery Method Room Air 04/21/25 11:15 BMI result Body Mass Index 26.9 Tobacco/Smoking Status: Tobacco use Status Tobacco use date assessed 04/21/25 04/21/25 11:15 Patient Tobacco Use Status Never used Tobacco 04/21/25 11:14 e-Cigarette/Vaping Use Never Used 04/21/25 11:14 PHQ-9: PHQ-9 Score PHQ-9: Total score 8 04/21/25 11:30 Depression Screening Interpretation: Positive Depression Screening Follow-up: Existing condition and In treatment Thrive Assessment: Date of Thrive Assessment Date Thrive assessed 04/21/25 04/21/25 11:19 Currently or been in a relationship where the following occur: No concerns reported Const Other: General: no acute distress, well developed, alert and awake Nutritional Appearance: well nourished Orientation/consciousness: patient oriented x3 [facility] Head: Yes normocephalic and Yes atraumatic Ears: hearing grossly normal bilaterally and TM's normal bilaterally General nose exam: Normal external nose present and Normal nares present Mouth: Normal oral and palatal mucosa present and moist mucous membranes Teeth and gingiva: dentition normal Throat: Yes oropharynx normal Eyes Pupils: Equal, round and reactive pupils present and Pupil accommodation reflex normal EOM: EOMs intact bilaterally Neck Neck: Yes normal visual inspection, Yes no lymphadenopathy and Yes trachea midline Thyroid: Thyroid normal Carotids: no bruits Lymphatic: no lymphadenopathy noted Chest Chest palpation & inspection: normal inspection of the chest Resp Effort & Inspection: normal respiratory effort Auscultation: clear to auscultation bilaterally Cardio Rate: regular rate Rhythm: regular rhythm Heart sounds: S1 normal heart sound present, S2 normal heart sound present, no gallops, no murmurs and no rubs Bruits: no abdominal aortic bruits and no carotid bruits GI Palpation (GI): No Abdominal aortic bruit present, Soft to palpation, nontender, No hepatosplenomegaly present and No Rebound tenderness present Auscultation: normal bowel sounds General: Yes no CVA tenderness Back/Spine/Pelvis Back: no CVA tenderness Cervical Spine: cervical ROM normal and No Cervical spine tenderness Thoracic/Lumbar Spine: thoraco-lumbar ROM normal, No pain with thoraco-lumbar ROM, No thoracic spinal tenderness and No lumbar spinal tenderness Skin General: warm and dry. Normal skin color. Normal skin turgor Lesions: no lesions Rashes: no rashes Trauma: no lacerations or abrasions Wounds: no wounds Nails: normal Neuro General: patient oriented x3, gait normal and CN's II-XI intact bilaterally Cranial nerves: Yes Equal, round and reactive pupils present Cognition (Neuro): normal cognition Gait exam (Neuro): Normal gait present Motor exam (neuro): 5/5 motor strength present throughout Sensory Exam: No Sensory deficit (Neuro) Deep tendon reflexes (DTR's): Right patellar reflex intensity grade: 2+ and Left patellar reflex intensity grade: 2+ Extrem General: Yes normal to inspection, No edema and No calf tenderness Psych Appearance: grossly normal Affect: normal affect Attitude: cooperative Thought process: Normal thought process present Coding Level of Care Code Est Pt Prev Care 18-39y(65694) Diagnoses Normal physical examination, routine Z00.00 Screen for STD (sexually transmitted disease) Z11.3 Laboratory tests ordered as part of a complete physical exam (CPE) Z00.00 Additional Codes ROCKY-7 Assessment Billing - ROCKY-7 Assessment Tool: ROCKY-7 Assessment 35954 ([id number]) Assessment & Plan Assessment & Plan (1) Normal physical examination, routine: Code(s): Z00.00 - Encounter for general adult medical examination without abnormal findings Category: Medical Plan: No significant functional limitations noted. Continue current treatment regimen. Perform lab work and follow-up for a telehealth visit for labs review in 2 weeks. Schedule transfer of care visit with a new provider within the practice. Return sooner with symptoms or concerns. Verbalized understanding and agreed with the plan. (2) Screen for STD (sexually transmitted disease): Code(s): Z11.3 - Encounter for screening for infections with a predominantly sexual mode of transmission Category: Medical Plan: He notes that he has not been sexually active in the past 8-9 months. He has no concerns for STDs. Requests labs for STD screening. STD labs ordered. (3) Laboratory tests ordered as part of a complete physical exam (CPE): Code(s): Z00.00 - Encounter for general adult medical examination without abnormal findings Category: Medical Plan: Fasting labs ordered as part of a complete physical exam. Advised to fast for at least 10 hours before getting labs drawn. May drink water Verbalized understanding and agreed with treatment plan. Orders: Orders Complete Blood Count Auto Diff Today Z00.00 - Encounter for general adult medical examination without abnormal findings Comprehensive Inglis. Panel Fast Today Z00.00 - Encounter for general adult medical examination without abnormal findings TSH reflex Free T4 Today Z00.00 - Encounter for general adult medical examination without abnormal findings Hepatitis B,C Profile Today Z11.3 - Encounter for screening for infections with a predominantly sexual mode of transmission HIV Ab/Ag Today Z11.3 - Encounter for screening for infections with a predominantly sexual mode of transmission Vitamin D 25-OH Total Today Z00.00 - Encounter for general adult medical examination without abnormal findings CT NG by PCR Urine Today Z11.3 - Encounter for screening for infections with a predominantly sexual mode of transmission Syphilis Screen Today Z11.3 - Encounter for screening for infections with a predominantly sexual mode of transmission
[2025-04-21 11:15] VITALS: BP 130/62; PULSE 72; RESP 16; TEMP 36.4; O2SAT 99; BMI 26.9
--- OUTSIDE RECORDS SUMMARY | 2025-04-21 14:19 | XMS_ITS | Clinical Summary ---
Author Organization [facility] Address [address] [place] [id number] Phone Care Team Providers Care Posting Specialist Name Role Phone Emil Carney MD Primary Care Provider [phone] Allergies No known active allergies Medications sertraline [...] HIV ONE-TIME SCREENING (18-6 5 YEARS) 2009 INFLUENZA VACCINE (#1) 2024 COVID-19 VACCINE (2024-2 6 season) 2025 Adult Td,Tdap Booster 04/21/2030 04/21/2020 SMOKING STATUS [...] topic Medical Devices Not on file Insurance [facility] [place] [id number] Care Teams Posting Specialist Relationship Specialty Start Date End Date Emil Carney MD [address] [place] [address] PCP - General 07/26/17 Additional Source Comments The information contained in this document represents components of the legal health record. It is not the complete legal health record.[facility]
--- OUTSIDE RECORDS SUMMARY | 2025-04-21 14:19 | XMS_ITS | Clinical Summary ---
Author Organization [employer] Address [address] [place] [address] Care Team Providers Care Candy Spreader Helper Name Role Phone Unavailable Primary Care Provider [...] of 3 - 19+ 3-dose series) 2010 Dental Oral Exam 09/26/2024 03/28/2024, 03/08/2023 Dental Prophylaxis 09/26/2024 03/28/2024, 03/08/2023 COVID-19 Vaccine (1 - 2024-2 6 season) 2025 Influenza Vaccine (#1) 2025 Dental X-Ray: Bitewings 03/29/2025 03/28/20 24, 03/08/2023 Tobacco Screening 08/19/2025 08/19/2024 Dental X-Ray: [...] Relevant to Health Maintenance Insurance [employer] [id number] [facility]
== END 2025-04-21 11:49 | disposition home or self-care (01) ==
LOC: HO.HMCFM 11:07
PROVIDERS: PCP Nurse Practitioner Family; Visit Provider Nurse Practitioner Family
DX: Z00.00 Encounter for general adult medical examination without abnormal findings (principal); Z11.3 Encounter for screening for infections with a predominantly sexual mode of transmission

== ENCOUNTER 2025-05-05 13:07 | Outpatient (AMB) | payer OTHER, SELFPAY ==
--- NOTE | 2025-05-05 13:05 | MHC.PC.OV ---
Intake Visit Reasons: Tele 2 wks labs Intake Note: patient here for 2wks Telehealth follow up for labs results Echocardiograph Technician Required: No Allergies Seasonal Allergies Allergy (Severe, Verified 05/05/25 13:06) Breathing complication Outdoor Pollen Allergy (Severe, Uncoded 05/05/25 13:06) Breathing Complications Tobacco use date assessed: 05/05/25 Dental Screening Dental Screen Date: 05/05/25 Did you have a dental visit in the last 12 months?: Yes Did you have a dental problem in the last 6 months where you did not have access to dental care?: No Was dental information given to patient?: Patient has dentist HPI HPI Comments History of Present Illness Details 35-year-old male presents for a telehealth visit for review of recent lab results. He offers no complaints and denies acute symptoms at this time. [facility] Medical History Intermittent paresthesia of hand and foot Shoulder blade pain Generalized muscle weakness Chronic fatigue Bipolar disorder Depression Anxiety Generalized headaches Acid reflux Sinusitis Surgical History Hx of cystoscopy History of esophagogastroduodenoscopy (EGD) H/O colonoscopy No pertinent past surgical history Family History Mother High cholesterol Psychiatric disorder Fibromyalgia Osteoarthritis Social History Housing: House Are you a primary inspector health care facilities to a significant other at home: No Patient Tobacco Use Status: Never used Tobacco e-Cigarette/Vaping Use: Never Used Second Hand Smoke Exposure: No service: No Current occupational status: unemployed and disabled Cognitive needs: Yes Hearing needs: No Vision needs: Yes Questionnaire Thrive Questionnaire Date Thrive assessed: 04/21/25 ROCKY-7 AMB Questionnaire ROCKY-7 Date ROCKY - 7 assessed: 04/21/25 Source: Developed by Drs. Terry Freed, Randa Zimmer, Rom Ambriz and colleagues, with an educational riana from [employer]. Review of Systems Const Details: Denies chills, Denies fatigue, Denies fever(s), Denies headache(s) and Denies weakness Cardiac Denies chest pain, Denies claudication, Denies leg edema, Denies lightheadedness, Denies palpitations, Denies dyspnea, Denies dyspnea on exertion, Denies orthopnea and Denies other (Loss of consciousness) Resp Denies cough, Denies excessive phlegm production, Denies dyspnea, Denies dyspnea on exertion, Denies snoring and Denies wheezing Physical exam (Primary Care) Tobacco/Smoking Status: Tobacco use Status Tobacco use date assessed 05/05/25 05/05/25 13:07 Patient Tobacco Use Status Never used Tobacco 05/05/25 13:07 e-Cigarette/Vaping Use Never Used 05/05/25 13:07 Thrive Assessment: Date of Thrive Assessment Date Thrive assessed 12/20/24 05/05/25 13:08 Const Other: Patient is alert and oriented x4 Telehealth Telehealth Telehealth Platform: Telephone Location of provider rendering services: practice address Location of patient: address on file Patient Identification confirmed using: Name, : Yes Telehealth method: voice only Patient verbally consented to treatment: Yes Patient verbally consented to billing insurance company: Yes Patient informed of any privacy concerns related to visit: Yes Coding Level of Care Code Tele Est Pt Level 3 (29773) Diagnoses Elevated LDL cholesterol level E78.00 Time Spent (min) 10 Assessment & Plan Assessment & Plan (1) Elevated LDL cholesterol level: Code(s): E78.00 - Pure hypercholesterolemia, unspecified Category: Medical Plan: Recent lab results are unremarkable except for slightly elevated LDL, 108. Advised to limit foods high in saturated fat and avoid foods high in trans fat. Routine exercise encouraged. Will monitor lipid panel annually or if clinically indicated. Follow-up in 2-3 months for transfer of care with a new provider within the practice. Return sooner with symptoms or concerns. Verbalized understanding and agreed with the plan.
--- OUTSIDE RECORDS SUMMARY | 2025-05-05 21:52 | XMS_ITS | Clinical Summary ---
Author Organization [employer] Address [address] [facility] [address] [place] [address] Care Team Providers Care Supervisor Boilermaking Shop Name Role Phone Unavailable Primary Care Provider [...] Relevant to Health Maintenance Insurance [employer] [id number] [facility]
--- OUTSIDE RECORDS SUMMARY | 2025-05-05 21:52 | XMS_ITS | Clinical Summary ---
Author Organization [facility] Address [address] [place] [id number] Phone Care Team Providers Care Manager Process Improvement Name Role Phone Emil Carney MD Primary Care Provider [phone] Allergies No known active allergies Medications sertraline [...] Medical Devices Not on file Insurance [facility] Care Teams Manager Process Improvement Relationship Specialty Start Date End Date Emil Carney MD [address] [place] [address] PCP - General 07/26/17 Additional Source Comments The information contained in this document represents components of the legal health record. It is not the complete legal health record.[facility]
== END 2025-05-05 15:30 | disposition home or self-care (01) ==
LOC: HO.HMCFM 13:08
PROVIDERS: PCP Nurse Practitioner Family; Visit Provider Nurse Practitioner Family
DX: E78.00 Pure hypercholesterolemia, unspecified (principal)